=== PATIENT | female | born 1985 | race Caucasian/White ===

== ENCOUNTER 2016-07-02 17:05 | Observation (INO) ==
[2016-07-02 17:34] LABS: Basophils % 0.5 %; Eosinophils # 0.2 K/mcL (0.0-0.6); Eosinophils % 2.3 %; Hematocrit 39.6 % (35.3-44.9); Immature Granulocytes % 0.2 % (0-4); Lymphocytes # 3.3 K/mcL (0.6-4.6); Mean Corpuscular HGB Conc 32.8 g/dL (31.6-35.5); Mean Corpuscular Hemoglobin 29.1 pg (28.0-33.3); Mean Corpuscular Volume 88.8 fL (83.0-100.0); Mean Platelet Volume 9.9 fL (9.4-12.4); Monocytes # 0.4 K/mcL (0.0-1.3); Monocytes % 4.9 %; Neutrophils # 4.4 K/mcL (1.6-8.9); Platelet Count 328 K/mcL (140-400); Red Blood Count 4.46 M/mcL (3.82-4.97); Red Cell Distribution Width 12.7 % (11.5-14.5); Segmented Neutrophils % 53.1 %
[2016-07-02 17:46] LABS: Bilirubin,Urine Negative (Negative); Blood,Urine Small (Negative); Color,Urine Yellow (Yellow); Glucose,Urine (UA) Normal (Normal); Ketones,Urine Negative (Negative); Leukocyte Esterase,Urine Small (Negative); Nitrite,Urine Negative (Negative); Protein,Urine Negative (Neg-Trace); Specific Gravity,Urine 1.016 (1.010-1.025); Urobilinogen,Urine Normal (Normal)
[2016-07-02 17:47] LABS: Bacteria,Urine Many per hpf (None-Few); Hyaline Casts,Urine None Seen per lpf (None-Few); Squamous Epithelial Cell,Urine Many per lpf (None-Few)
[2016-07-02 17:50] LABS: Alanine Aminotransferase 39 Units/L (0-55); Albumin 3.5 g/dL (3.5-5.0); Albumin/Globulin Ratio 0.9 (1.1-2.2); Alkaline Phosphatase 46 Units/L (38-126); Aspartate Amino Transferase 34 Units/L (5-34); BUN/Creatinine Ratio 14 (6-26); Bilirubin,Direct 0.2 mg/dL (0.0-0.5); Bilirubin,Indirect 0.1 mg/dL (0.0-1.2); Bilirubin,Total 0.3 mg/dL (0.2-1.2); Blood Urea Nitrogen 10 mg/dL (7-20); Calcium 8.7 mg/dL (8.6-10.8); Carbon Dioxide 20 mEq/L (19-29); Chloride 107 mEq/L (98-109); Globulin 4.1 g/dL (2.4-3.5); Glucose 92 mg/dL (70-99); Osmolality,Calculated 285 (280-300); Sodium 138 mEq/L (136-145); Total Protein 7.6 g/dL (6.0-8.3); eGFR For African Americans > 60 (> 60); eGFR For Non-African Americans > 60 (> 60)
[2016-07-02 17:51] LABS: Acetaminophen < 1.0 mcg/mL (10-30); Ethanol < 10 mg/dL (0-10); Salicylate < 5.0 mg/dL (15-30)
[2016-07-02 17:51] LABS: Clarity,Urine Hazy (Clear)
[2016-07-02 17:52] LABS: Amphetamine Screen,Urine Negative ng/mL (Cutoff=1000); Barbiturate Screen,Urine Negative ng/mL (Cutoff=200); Benzodiazepines Screen,Urine Negative ng/mL (Cutoff=200); Cannabinoid Screen,Urine Negative ng/mL (Cutoff = 50); Cocaine Screen,Urine Negative ng/mL (Cutoff= 300); Opiate Screen,Urine Negative ng/mL (Cutoff=300); Phencyclidine Screen,Urine Negative ng/mL (Cutoff=25)
[2016-07-02 18:02] LABS: RBC,Urine 0-3 per hpf (0-3)
[2016-07-03 04:53] LABS: Basophils # 0.1 K/mcL (0.0-0.2); Basophils % 0.6 %; Eosinophils # 0.2 K/mcL (0.0-0.6); Eosinophils % 2.7 %; Hematocrit 36.6 % (35.3-44.9); Hemoglobin 11.8 g/dL (11.5-15.4); Immature Granulocytes % 0.2 % (0-4); Lymphocytes # 3.8 K/mcL (0.6-4.6); Lymphocytes % 47.5 %; Mean Corpuscular HGB Conc 32.2 g/dL (31.6-35.5); Mean Corpuscular Hemoglobin 28.9 pg (28.0-33.3); Mean Corpuscular Volume 89.7 fL (83.0-100.0); Mean Platelet Volume 10.2 fL (9.4-12.4); Monocytes # 0.5 K/mcL (0.0-1.3); Monocytes % 5.7 %; Neutrophils # 3.5 K/mcL (1.6-8.9); Platelet Count 329 K/mcL (140-400); Red Blood Count 4.08 M/mcL (3.82-4.97); Red Cell Distribution Width 12.7 % (11.5-14.5); Segmented Neutrophils % 43.3 %
[2016-07-03 05:03] LABS: BUN/Creatinine Ratio 16 (6-26); Blood Urea Nitrogen 12 mg/dL (7-20); Calcium 9.1 mg/dL (8.6-10.8); Carbon Dioxide 19 mEq/L (19-29); Chloride 110 mEq/L (98-109); Glucose 71 mg/dL (70-99); Osmolality,Calculated 288 (280-300); Sodium 140 mEq/L (136-145); eGFR For African Americans > 60 (> 60); eGFR For Non-African Americans > 60 (> 60)
[2016-07-03 12:14] VITALS: BP 117/68
== END 2016-07-03 17:45 ==
LOC: EMEROO 17:05 → 3BNU 17:05
PROVIDERS: ADMIT Internal Medicine; ATTEND Nurse Practitioner Family

== ENCOUNTER 2016-07-03 18:03 | Inpatient (IN) ==
[2016-07-03] MEDS ORDERED: MOM Conc 10 ML UD.LIQ PO PRN (19:07)
[2016-07-03] MEDS ORDERED: *HR* LORazepam 2 MG/ML VIAL IM PRN (19:07)
[2016-07-03] MEDS ORDERED: Mag Hydrox/Al Hydrox/Simeth 30 ML UDC PO PRN (19:07)
[2016-07-03] MEDS ORDERED: *HR* LORazepam 1 MG TABLET PO PRN (19:07)
[2016-07-03] MEDS ORDERED: Haloperidol Lactate 5 MG/ML VIAL IM PRN (19:07)
[2016-07-03] MEDS ORDERED: Ibuprofen 400 MG TABLET PO PRN (19:07)
[2016-07-03] MEDS ORDERED: hydrOXYzine pamoate 25 MG CAPSULE PO PRN (19:07)
[2016-07-03] MEDS ORDERED: traZODone 50 MG TABLET PO PRN (19:07)
[2016-07-03] MEDS ORDERED: tiZANidine 4 MG TABLET PO PRN (19:15)
[2016-07-03] MEDS: Indomethacin 25 MG CAPSULE PO SCH (20:56)
[2016-07-03] MEDS: traZODone 50 MG TABLET PO SCH (20:56)
[2016-07-04] MEDS: *HR* Metformin 500 MG TABLET PO SCH ×2 (08:22→16:35)
[2016-07-04] MEDS: Indomethacin 25 MG CAPSULE PO SCH ×2 (09:06→20:51)
[2016-07-04] MEDS: Multivit/Ca/Min/Fe/FA 1 TAB TABLET PO SCH (09:06)
[2016-07-04] MEDS: (Norgestimate-Ethinyl Estradiol [Sprintec 28 Day Tabl) PO SCH (09:07)
--- NOTE | 2016-07-04 11:27 | Psychiatry History & Physical ---
Date of Encounter: 07/04/16 Time of Encounter: 11:25 History of Present Illness Patient Stated Chief Complaint: Suicide attempt by overdose on Effexor Medicare Admission Attestation: For traditional Medicare patients the provided hospital inpatient services are reasonable and necessary and in the case of services not specified as inpatient -only under 42 CFR 419.22 (n), that they are appropriately provided as inpatient services in accordance 42 CFR 412.3. For Critical [facility] the patient may reasonably be expected to be discharged or transferred to a hospital within 96 hours after admission to the Critical Access Hospital. Admitted From: Intrahospital Transfer History of Present Illness: Ms. Gutierrez is a 31 year old female admitted to the hospital after an overdose on Effexor in a suicide attempt following argument with her boyfriend. This is her first psychiatric hospitalization and after medical clearance she was transferred from the medical floor to behavioral health unit. Please see my consultation report for history information. Past Med Surg Social Fam HX - Past Medical History Medical history: no medical history, diabetes, other - Past Psychiatric History Psychiatric history: Reports: no psych history - Past Surgical History Surgical History: other - Social History Smoking Status: Never smoker Smokeless Tobacco Status: No Alcohol use: occasionally Drug use: none - Family History Father Hx Family Endocrine Disorder: Yes (diabetes) Medications & Allergies Buspirone HCl [Buspar] 15 mg PO BID 07/02/16 [History] Indomethacin 50 mg PO BID 07/02/16 [History] Meloxicam [Mobic] 15 mg PO DAILY 07/02/16 [History] Metformin [Glucophage] 500 mg PO BIDWM 07/02/16 [History] Multivitamin [Multi-Day Vitamins] 1 each PO DAILY 07/02/16 [History] Norgestimate-Ethinyl Estradiol [Sprintec 28 Day Tablet] 1 tab PO DAILY 07/02/16 [History] Tizanidine HCl 2 mg PO Q8H PRN 07/02/16 [History] TraZODone 50 mg PO HS 07/02/16 [History] Venlafaxine XR (24 HR) [Effexor Xr] 150 mg PO DAILY 07/02/16 [History] Allergies No Known Allergies Allergy (Verified 07/02/16 17:09) Review of Systems Psychiatric: Reports: depression, anxiety. Denies: suicidal ideation Mental Status Exam Patient orientation: Yes Person, Yes Time, Yes Place Level of alertness: Alert, Sedated Patient appearance: Appropriate, Well Groomed Behavior: calm, cooperative, guarded Psychomotor activity: Normal Eye contact: Maintains Eye Contact Mood description: Depressed, Anxious Affect description: congruent with mood, full range Speech pattern: Normal rate, Normal rhythm, Normal tone Speech volume: Normal Thought process: Linear, Goal Oriented Thought content: No Suicidal ideation, No Homicidal ideation, No Overt delusions Perceptual disturbances: No Auditory hallucinations, No Visual hallucinations Attention span: Capable of Focused Attention Memory description: Grossly Intact Patient reliability: Reliable Historian Intelligence estimate: Average Judgment: Limited Insight: Partial Results - Vital Signs Vital signs: Temp Pulse Resp BP 97.4 F L 77 16 88/62 07/04/16 08:37 07/04/16 08:37 07/04/16 08:37 07/04/16 08:37 - Labs Labs: Laboratory Last Values POC Glucose 91 (58-89) H 07/04/16 07:39 Assessment and Plan (1) Depressive disorder Current visit: No Status: Acute Plan: Admit inpatient for safety and stabilization, Close observation, Suicide Precautions per unit protocol, Encourage participation in unit milieu, Group Therapy, Monitor sleep, Monitor appetite Risks, benefits, side effects, alternatives discussed w/pt: Yes Patient agreeable to treatment: Yes (2) Alcohol abuse Current visit: No Status: Acute Plan: Admit inpatient for safety and stabilization, Close observation, Suicide Precautions per unit protocol, Encourage participation in unit milieu, Group Therapy, Monitor sleep, Monitor appetite Risks, benefits, side effects, alternatives discussed w/pt: Yes Patient agreeable to treatment: Yes
[2016-07-04] MEDS: traZODone 50 MG TABLET PO SCH (20:51)
[2016-07-05] MEDS: *HR* Metformin 500 MG TABLET PO SCH ×2 (07:08→17:31)
[2016-07-05] MEDS: Indomethacin 25 MG CAPSULE PO SCH ×2 (08:37→20:42)
[2016-07-05] MEDS: Multivit/Ca/Min/Fe/FA 1 TAB TABLET PO SCH (08:37)
[2016-07-05] MEDS: Venlafaxine XR (24 HR) 75 MG CAP.ER.24H PO SCH (08:38)
[2016-07-05] MEDS: (Norgestimate-Ethinyl Estradiol [Sprintec 28 Day Tabl) PO SCH (08:39)
[2016-07-05] MEDS: Sulfamethoxazole/Trimeth DS 1 EACH TABLET PO SCH ×2 (11:47→20:42)
--- NOTE | 2016-07-05 13:42 | Psychiatry Progress Note ---
Date of Encounter: 07/05/16 Time of Encounter: 01:40 Subjective Interval history: Patient seen and interviewed. History and physical examination reviewed. Patient started to notice improvement in her mood. Suicidal ideations has started to subside. Patient is becoming more future oriented and hopeful. Attending groups and participating in activities. Learning coping skills. Encouraged to work on a safety plan. Tolerating medications fairly well. Review of Systems Constitutional: Denies: fever, chills, weakness, weight change Eyes: Denies: eye pain, vision change Ears, Nose, Throat: Denies: ear pain, throat pain, dental pain, hearing loss, congestion Cardiovascular: Denies: chest pain, palpitations, dyspnea on exertion Respiratory: Denies: cough, dyspnea, wheezes Gastrointestinal: Denies: abdominal pain, nausea, vomiting, diarrhea, constipation Musculoskeletal: Denies: joint swelling, joint pain Neurological: Denies: headache, weakness, numbness, memory loss Psychiatric: Reports: depression, anxiety. Denies: suicidal ideation Objective: Exam Patient orientation: Yes Person, Yes Time, Yes Place Level of alertness: Alert, Sedated Patient appearance: Appropriate, Well Groomed Behavior: calm, cooperative, guarded Psychomotor activity: Normal Eye contact: Maintains Eye Contact Mood description: Depressed, Anxious Affect description: congruent with mood, full range Speech pattern: Normal rate, Normal rhythm, Normal tone Speech volume: Normal Thought process: Linear, Goal Oriented Thought content: No Suicidal ideation, No Homicidal ideation, No Overt delusions Perceptual disturbances: No Auditory hallucinations, No Visual hallucinations Judgment: Fair Insight: Partial Results - Vital Signs Vital Signs: Temp Pulse Resp BP 97.8 F 77 18 102/68 07/05/16 08:29 07/05/16 08:29 07/05/16 08:29 07/05/16 08:29 - Labs Labs: Laboratory Results - last 24 hr 07/04/16 07/05/16 19:44 07:07 POC Glucose 130 H 97 H Assessment and Plan (1) Depressive disorder Current visit: No Status: Acute Plan: Continue hospitalization, Close observation, Suicide Precautions per unit protocol, Encourage participation in unit milieu, Group Therapy, Monitor sleep, Monitor appetite Additional Plan: Patient is started to show improvement and is doing better. Patient is encouraged to work on a safety plan. Possible discharge tomorrow. Risks, benefits, side effects, alternatives discussed w/pt: Yes Patient agreeable to treatment: Yes Consult Discharge Plan - Plan Referrals: [facility] [place] [[place]] - 07/17/16 2:30 pm (The above appointment is with Nova Caballero for counseling. When you come to your first appointment, you will have an orientation to the agency and you will meet with a counselor. Please bring the following with you to your first visit to the clinic: 1) proof of household income (two consecutive pay stubs, social security award letter, bank statement, statement letter from [facility], child support statement, IRS 1040 or W2 form, or a statement from the person who financially supports you stating they help provide for your basic needs), 2) proof of residency (drivers license, a piece of mail showing your address, a statement from person you live with verifying you live at their address), 3) your social security number, and 4) your insurance card (if you have commercial insurance you must call to obtain a prior authorization number before you arrive to your first appointment). If you do not bring these items, you will not be seen.) Ya Smith CNP [Partnered Physician] - 07/09/16 9:50 am (The above appointment is with Kang Smith.)
[2016-07-05] MEDS: traZODone 50 MG TABLET PO SCH (20:42)
[2016-07-06] MEDS: *HR* Metformin 500 MG TABLET PO SCH (07:05)
[2016-07-06] MEDS: Venlafaxine XR (24 HR) 75 MG CAP.ER.24H PO SCH (09:16)
[2016-07-06] MEDS: Indomethacin 25 MG CAPSULE PO SCH (09:17)
[2016-07-06] MEDS: Multivit/Ca/Min/Fe/FA 1 TAB TABLET PO SCH (09:17)
[2016-07-06] MEDS: Sulfamethoxazole/Trimeth DS 1 EACH TABLET PO SCH (09:17)
[2016-07-06] MEDS: (Norgestimate-Ethinyl Estradiol [Sprintec 28 Day Tabl) PO SCH (09:19)
[2016-07-06 10:01] VITALS: BP 121/78
--- NOTE | 2016-07-06 11:44 | Discharge Summary ---
Date of Encounter: 07/06/16 Time of Encounter: 10:55 Diagnosis - Discharge Diagnosis (1) Depressive disorder Status: Acute Medications - Discharge Medications Prescriptions: Buspirone HCl [Buspar] 15 mg PO BID #60 tablet HydrOXYzine Pamoate 25 mg PO TID PRN #90 capsule PRN Reason: Anxiety Sulfamethoxazole/Trimeth DS [Bactrim Ds] 1 each PO BID #11 tablet Venlafaxine XR (24 HR) [Effexor XR] 225 mg PO DAILY #90 cap.er.24h Indomethacin 50 mg PO BID 07/02/16 [History] Meloxicam [Mobic] 15 mg PO DAILY 07/02/16 [History] Metformin [Glucophage] 500 mg PO BIDWM 07/02/16 [History] Multivitamin [Multi-Day Vitamins] 1 each PO DAILY 07/02/16 [History] Norgestimate-Ethinyl Estradiol [Sprintec 28 Day Tablet] 1 tab PO DAILY 07/02/16 [History] Tizanidine HCl 2 mg PO Q8H PRN 07/02/16 [History] TraZODone 50 mg PO HS 07/02/16 [History] Buspirone HCl [Buspar] 15 mg PO BID #60 tablet 07/06/16 [Rx] HydrOXYzine Pamoate 25 mg PO TID PRN #90 capsule 07/06/16 [Rx] Sulfamethoxazole/Trimeth DS [Bactrim Ds] 1 each PO BID #11 tablet 07/06/16 [Rx] TraZODone 50 mg PO HS PRN #0 tablet 07/06/16 [Rx] Venlafaxine XR (24 HR) [Effexor XR] 225 mg PO DAILY #90 cap.er.24h 07/06/16 [Rx] Allergies No Known Allergies Allergy (Verified 07/02/16 17:09) Provider Date of admission: 07/03/16 18:03 Primary care physician: PCP NO Discharging clinician: Zehra Bowden Assessment and Plan - Patient/Caregiver Discharge Instructions Activity: resume usual activities as tolerated Diet: regular diet - Follow up Plan Follow up with: Eloina Prescott [Outside] - 07/17/16 2:30 pm (The above appointment is with Nova Caballero for counseling. When you come to your first appointment, you will have an orientation to the agency and you will meet with a counselor. Please bring the following with you to your first visit to the clinic: 1) proof of household income (two consecutive pay stubs, social security award letter, bank statement, statement letter from [facility], child support statement, IRS 1040 or W2 form, or a statement from the person who financially supports you stating they help provide for your basic needs), 2) proof of residency (drivers license, a piece of mail showing your address, a statement from person you live with verifying you live at their address), 3) your social security number, and 4) your insurance card (if you have commercial insurance you must call to obtain a prior authorization number before you arrive to your first appointment). If you do not bring these items, you will not be seen.) Ya Smith CNP [Partnered Physician] - 07/09/16 9:50 am (The above appointment is with Kang Smith.) Overall status at discharge: Stable Disposition: Home, Self-Care Hospital Course Hospital course: Ms. Gutierrez is a 31 year old female who was referred for depression and suicidal ideation. After reviewing the symptom diagnoses and treatment phu and explaining the risks and benefits side effects alternated to treatment and consequences of no treatment and getting an informed consent from the patient for Effexor was increased to 225 mg daily from 150 mg daily for her depression. She was started on Vistaril 25 mg 3 times a day for her anxiety. She was continued on her BuSpar for anxiety. Patient's urine analysis showed a UTI she was started on Bactrim DS. The patient responded well to the therapeutic milieu and started noticing improvement in her motor hopeless helpless feelings started to subside and she became more positive and hopeful. She was able to verbalize a safety plan. She tolerated med changes fairly well did not report any side effects. Overall her discharge condition was stable. - Time Spent with Patient Total time spent providing and/or coordinating discharge services: Less than 30 minutes Quality - Multiple Antipsychotics Patient discharged on 2 or more antipsychotic medications: No Procedures - Procedures Procedures: Medication Management, Crisis Stabilization, Supportive Therapy, Group Therapy, Psychoeducational Therapy Mental Status Exam - Mental Status Exam Patient orientation: Yes Person, Yes Time, Yes Place Level of alertness: Alert, Sedated Patient appearance: Appropriate, Well Groomed Behavior: calm, cooperative Psychomotor activity: Normal Eye contact: Maintains Eye Contact Mood description: Euthymic/stable Affect description: congruent with mood, full range Speech pattern: Normal rate, Normal rhythm, Normal tone Speech Volume: Normal Thought process: Intact, Logical, Linear, Goal Oriented Thought Content: No Suicidal ideation, No Homicidal ideation, No Overt delusions Perceptual Disturbances: No Auditory hallucinations, No Visual hallucinations Judgment: Good Insight: Partial
== END 2016-07-06 13:55 | disposition home or self-care (01) | DRG 812 ==
LOC: SUATTDRO 18:03 → 1ANU 18:03
PROVIDERS: ADMIT Psychiatry & Neurology Psychiatry; ATTEND Psychiatry & Neurology Psychiatry

== ENCOUNTER 2017-03-05 15:08 | Observation (INO) ==
--- NOTE | 2017-03-05 16:06 | Emergency Department Note ---
START Narrative - START START: I examined this patient and my medical decision-making was reviewed with the Resident Physician. I agree with the documented findings, disposition and treatment plan as described except to the extent set forth below. 31 year old female who had a suicicde attempt today with her leftover venlafaxine and took 50, 75mg extended release venlafaxine tablets about 1 hour ago and states that she has lost her job and possibly might lose her home and this caused her to swallow pills. She has done this before about one year ago. Poision control states that she can ingest charcoal if she can toelrate it otherwise will need to be monitored for QT prolongation. EKG does not depict QT proglonation at this and her vital signs are stable. WE will admit ot [facility]isa for effexor OD and medical clearance.
--- NOTE | 2017-03-05 16:07 | Emergency Department Note ---
Disposition Clinical Impression: Suicide attempt by drug ingestion Disposition: Admitted As Inpatient Condition: Fair Time of Disposition: 19:47 Psych HPI - General Chief Complaint: ED Psychiatric Symptoms Stated Complaint: SI, took 50 venlafaxine Time Seen by Provider: 03/05/17 15:32 Source: patient Nursing Notes Reviewed: Yes Vital Signs Reviewed: Yes - History of Present Illness HPI Narrative: Ms. Gutierrez, a 31-year-old female, presents from home after ingesting quantity 50 tablets of venlafaxine extended release, 75 mg tablets. Indigestion at one time at 14:30. She did this one time previously approximate one year ago. Her only symptom at this time is feeling tired. No coingestions. PMH: Depression, previous attempted suicide by ingestion, diabetes type 2 on oral antihyperglycemic. ROS: Positive: Tired Negative: Tremor, confusion, flushing sensation, dry mouth, chest pains, palpitations. - Related Data Home Medications Medication Instructions Recorded Confirmed Meloxicam [Mobic] 15 mg PO DAILY 07/02/16 03/05/17 Norgestimate-Ethinyl Estradiol 1 tab PO DAILY 07/02/16 03/05/17 [Sprintec 28 Day Tablet] ARIPiprazole [Abilify] 2 mg PO HS 03/05/17 03/05/17 Diclofenac Sodium [Voltaren] 1 appl TP QID PRN 03/05/17 03/05/17 Previous Rx's Medication Instructions Recorded Buspirone HCl [Buspar] 15 mg PO BID #60 tablet 07/06/16 Venlafaxine XR (24 HR) [Effexor XR] 225 mg PO DAILY #90 cap.er.24h 07/06/16 Allergies Allergy/AdvReac Type Severity Reaction Status Date / Time No Known Allergies Allergy Verified 07/02/16 17:09 All systems ED: reviewed and negative except as stated. Review of Systems: As Per HPI Past Medical History - Past Medical History Medical history: Reports: no medical history, diabetes, other Surgical history: Reports: other Psychiatric history: Reports: anxiety, depression, prior suicide attempt, previous psychiatric hospitalization - Social History Smoking Status: Never smoker Smokeless Tobacco Status: No Alcohol use: Reports: occasionally Drug use: Reports: none Physical Exam Vital Signs Reviewed General: Patient is alert, oriented, and in no acute distress. HEENT: No facial asymmetry. Head is normocephalic and atraumatic. Oromucosa moist. Trachea midline. Pupils equally round and reactive to light. Extraocular motion intact. No nystagmus. Cardiovascular: Heart regular rate and rhythm without clicks, rubs, gallops, or murmurs. No JVD. PMI nondisplaced. Respiratory: Symmetric chest rise with good respiratory effort. Bilateral breath sounds are clear without wheezing, crackles, or rhonchi. Abdomen: Obese. Bowel sounds present normoactive x-4 quadrants. Abdomen is soft, nondistended, and nontender. No organomegaly noted. Musculoskeletal: DTRs 2/4 and symmetric bilaterally in upper and lower extremities. Neuro: Cranial nerves II through XII without deficit. Sensation light touch intact. GCS 15. Skin: Warm, dry. Psych: Patient's affect is appropriate for situation. - General Limitations: no limitations General appearance: alert, in no apparent distress Course Course Narrative: 15:55 Spoke with poison control. They recommend symptomatic management as well as by mouth charcoal this time. 18:30 Reevaluate patient. She remains alert, oriented. Tired but otherwise asymptomatic. I discussed the patient with the admitting hospitalist, Dr. Moe, who agrees to accept the patient for continued management and evaluation. Vital Signs Temperature 98.7 F 03/05/17 15:31 Pulse Rate 96 03/05/17 15:31 Respiratory Rate 18 03/05/17 15:31 Blood Pressure 101/62 03/05/17 15:31 O2 Sat by Pulse Oximetry 98 03/05/17 15:31 Temperature 97.8 F 03/05/17 19:34 Pulse Rate 94 03/05/17 19:34 Respiratory Rate 14 03/05/17 19:34 Blood Pressure 91/51 03/05/17 19:34 O2 Sat by Pulse Oximetry 97 03/05/17 19:34 Oxygen Delivery Oxygen Delivery Room Air Psych - Lab Data Result diagrams: 03/05/17 16:19 03/05/17 16:19 Lab Results 03/05/17 03/05/17 03/05/17 Range/Units 16:00 16:00 16:00 WBC (4.3-11.1) K/mcL RBC (3.82-4.97) M/mcL Hgb (11.5-15.4) g/dL Hct (35.3-44.9) % MCV (83.0-100.0) fL MCH (28.0-33.3) pg MCHC (31.6-35.5) g/dL RDW (11.5-14.5) % Plt Count (140-400) K/mcL MPV (9.4-12.4) fL Immature Gran % (0-4) % Seg Neutrophils % % Lymphocytes % % Monocytes % % Eosinophils % % Basophils % % Neutrophils # (1.6-8.9) K/mcL Lymphocytes # (0.6-4.6) K/mcL Monocytes # (0.0-1.3) K/mcL Eosinophils # (0.0-0.6) K/mcL Basophils # (0.0-0.2) K/mcL Sodium (136-145) mEq/L Potassium (3.5-4.5) mEq/L Chloride (98-109) mEq/L Carbon Dioxide (19-29) mEq/L BUN (7-20) mg/dL Creatinine (0.57-1.11) mg/dL Est GFR ( Amer) (> 60) Est GFR (Non-Af Amer) (> 60) BUN/Creatinine Ratio (6-26) Glucose (70-99) mg/dL Calculated Osmolality (280-300) Calcium (8.6-10.8) mg/dL Urine Color Yellow (Yellow) Urine Clarity Hazy A (Clear) Urine pH 6.0 (5.0-8.0) pH Units Ur Specific [place] 1.019 (1.010-1.025) Urine Protein Negative (Neg-Trace) mg/dL Urine Glucose (UA) Normal (Normal) mg/dL Urine Ketones Negative (Negative) mg/dL Urine Blood Small H (Negative) Urine Nitrite Negative (Negative) Urine Bilirubin Negative (Negative) Urine Urobilinogen Normal (Normal) mg/dL Ur Leukocyte Esterase Moderate H (Negative) Urine Microscopic RBC 15-30 H (0-3) per hpf Urine Microscopic WBC 50-100 H (0-3) per hpf Ur Squamous Epith Cells Many H (None-Few) per lpf Urine Bacteria None Seen (None-Few) per hpf Hyaline Casts None Seen (None-Few) per lpf Urine Test Negative (Negative) Salicylates (15-30) mg/dL Urine Opiates Screen Negative (Btevne=646) ng/mL Acetaminophen (10-30) mcg/mL Ur Barbiturates Screen Negative (Cavxfh=368) ng/mL Ur Phencyclidine Scrn Negative (Cutoff=25) ng/mL Ur Amphetamines Screen Negative (Qtixuz=8281) ng/mL U Benzodiazepines Scrn Negative (Lyvqob=658) ng/mL Urine Cocaine Screen Negative (Cutoff= 300) ng/mL U Marijuana (THC) Screen Negative (Cutoff = 50) ng/mL Ethyl Alcohol (0-10) mg/dL 03/05/17 03/05/17 Range/Units 16:19 16:19 WBC 9.0 (4.3-11.1) K/mcL RBC 3.83 (3.82-4.97) M/mcL Hgb 11.3 L (11.5-15.4) g/dL Hct 35.0 L (35.3-44.9) % MCV 91.4 (83.0-100.0) fL MCH 29.5 (28.0-33.3) pg MCHC 32.3 (31.6-35.5) g/dL RDW 13.4 (11.5-14.5) % Plt Count 323 (140-400) K/mcL MPV 10.3 (9.4-12.4) fL Immature Gran % 0.3 (0-4) % Seg Neutrophils % 56.4 % Lymphocytes % 33.0 % Monocytes % 4.9 % Eosinophils % 5.0 % Basophils % 0.4 % Neutrophils # 5.1 (1.6-8.9) K/mcL Lymphocytes # 3.0 (0.6-4.6) K/mcL Monocytes # 0.4 (0.0-1.3) K/mcL Eosinophils # 0.5 (0.0-0.6) K/mcL Basophils # 0.0 (0.0-0.2) K/mcL Sodium 140 (136-145) mEq/L Potassium 3.9 (3.5-4.5) mEq/L Chloride 109 (98-109) mEq/L Carbon Dioxide 21 (19-29) mEq/L BUN 15 (7-20) mg/dL Creatinine 0.71 (0.57-1.11) mg/dL Est GFR ( Amer) > 60 (> 60) Est GFR (Non-Af Amer) > 60 (> 60) BUN/Creatinine Ratio 21 (6-26) Glucose 89 (70-99) mg/dL Calculated Osmolality 290 (280-300) Calcium 9.0 (8.6-10.8) mg/dL Urine Color (Yellow) Urine Clarity (Clear) Urine pH (5.0-8.0) pH Units Ur Specific [place] (1.010-1.025) Urine Protein (Neg-Trace) mg/dL Urine Glucose (UA) (Normal) mg/dL Urine Ketones (Negative) mg/dL Urine Blood (Negative) Urine Nitrite (Negative) Urine Bilirubin (Negative) Urine Urobilinogen (Normal) mg/dL Ur Leukocyte Esterase (Negative) Urine Microscopic RBC (0-3) per hpf Urine Microscopic WBC (0-3) per hpf Ur Squamous Epith Cells (None-Few) per lpf Urine Bacteria (None-Few) per hpf Hyaline Casts (None-Few) per lpf Urine Test (Negative) Salicylates < 5.0 L (15-30) mg/dL Urine Opiates Screen (Dvljbn=241) ng/mL Acetaminophen < 1.0 L (10-30) mcg/mL Ur Barbiturates Screen (Rnfejl=565) ng/mL Ur Phencyclidine Scrn (Cutoff=25) ng/mL Ur Amphetamines Screen (Ksydyj=2582) ng/mL U Benzodiazepines Scrn (Rusnqi=549) ng/mL Urine Cocaine Screen (Cutoff= 300) ng/mL U Marijuana (THC) Screen (Cutoff = 50) ng/mL Ethyl Alcohol < 10 (0-10) mg/dL - EKG Data EKG attestation: Yes I reviewed and interpreted this EKG. EKG results narrative: EKG dated March 2017 at 15:54 and troponin as sinus rhythm with a rate of 97. Normal intervals appear 123, QRS 109, QT/QTc 342/397. Normal axis. Nonspecific ST-T changes. No previous EKG for comparison. Psychiatric Medical Clearance - Medical Clearance Checklist Does the patient have a NEW psychiatric condition?: No Any abnormalities indicating possible medical illness?: No Any history of medical issues?: No Medical History: Drug overdose (Acute) Suicidal ideation (Acute) Morbid obesity (Chronic) Diabetes mellitus (Chronic) Abnormal urinalysis (Acute) Depressive disorder (Acute) Alcohol abuse (Acute) Abnormal finding on urinalysis (Inactive) Coccyx contusion (Inactive) Cold sore (Inactive) Pain of right sacroiliac joint (Inactive) Poison dariel (Inactive) No Social History Section defined Any abnormal vital signs prior to transfer?: No Current Vitals: Last Vital Signs Temp 97.8 F 03/05/17 19:34 Pulse 94 03/05/17 19:34 Resp 14 03/05/17 19:34 BP 91/51 03/05/17 19:34 Pulse Ox 97 03/05/17 19:34 Is the patient intoxicated or cognitively impaired?: No Psychiatric Lab Panel: Drug Levels and Toxicity 03/05/17 03/05/17 16:00 16:19 Urine Opiates Screen Negative Acetaminophen < 1.0 L Ur Barbiturates Screen Negative Ur Phencyclidine Scrn Negative Ur Amphetamines Screen Negative U Benzodiazepines Scrn Negative Urine Cocaine Screen Negative U Marijuana (THC) Screen Negative Ethyl Alcohol < 10 Any abnormalities on the physical exam?: No Any abnormal labs?: No Abnormal Labs: Abnormal lab results Hgb 11.3 g/dL (11.5-15.4) L 03/05/17 16:19 Hct 35.0 % (35.3-44.9) L 03/05/17 16:19 Urine Clarity Hazy (Clear) A 03/05/17 16:00 Urine Blood Small (Negative) H 03/05/17 16:00 Ur Leukocyte Esterase Moderate (Negative) H 03/05/17 16:00 Urine Microscopic RBC 15-30 per hpf (0-3) H 03/05/17 16:00 Urine Microscopic WBC 50-100 per hpf (0-3) H 03/05/17 16:00 Ur Squamous Epith Cells Many per lpf (None-Few) H 03/05/17 16:00 Salicylates < 5.0 mg/dL (15-30) L 03/05/17 16:19 Acetaminophen < 1.0 mcg/mL (10-30) L 03/05/17 16:19 Does the patient require durable medical equiptment?: No Is the patient ambulatory?: Yes Is the patient a fall risk?: No Has the patient been medically cleared?: No (24hr obs for venlafaxine ER toxicity) Any acute medical condition require Tx prior to transfer?: Yes (Venlafaxine ingestion) Statement of Medical Clearance: I have evaluated the patient, reviewed diagnostic information, and certify that the patient's medical condition is sufficiently stable that transfer to the psychiatric unit does not pose a significant risk of deterioration.
[2017-03-05 16:18] LABS: Bilirubin,Urine Negative (Negative); Blood,Urine Small (Negative); Color,Urine Yellow (Yellow); Glucose,Urine (UA) Normal (Normal); Ketones,Urine Negative (Negative); Leukocyte Esterase,Urine Moderate (Negative); Nitrite,Urine Negative (Negative); Protein,Urine Negative (Neg-Trace); Specific Gravity,Urine 1.019 (1.010-1.025); Urobilinogen,Urine Normal (Normal)
[2017-03-05 16:19] LABS: Bacteria,Urine None Seen per hpf (None-Few); Hyaline Casts,Urine None Seen per lpf (None-Few); RBC,Urine 15-30 per hpf (0-3); Squamous Epithelial Cell,Urine Many per lpf (None-Few); WBC,Urine 50-100 per hpf (0-3)
[2017-03-05 16:20] LABS: Clarity,Urine Hazy (Clear)
[2017-03-05 16:42] LABS: Basophils % 0.4 %; Eosinophils # 0.5 K/mcL (0.0-0.6); Hemoglobin 11.3 g/dL (11.5-15.4); Immature Granulocytes % 0.3 % (0-4); Mean Corpuscular HGB Conc 32.3 g/dL (31.6-35.5); Mean Corpuscular Hemoglobin 29.5 pg (28.0-33.3); Mean Corpuscular Volume 91.4 fL (83.0-100.0); Mean Platelet Volume 10.3 fL (9.4-12.4); Monocytes # 0.4 K/mcL (0.0-1.3); Monocytes % 4.9 %; Neutrophils # 5.1 K/mcL (1.6-8.9); Platelet Count 323 K/mcL (140-400); Red Blood Count 3.83 M/mcL (3.82-4.97); Red Cell Distribution Width 13.4 % (11.5-14.5); Segmented Neutrophils % 56.4 %
[2017-03-05 16:50] LABS: Amphetamine Screen,Urine Negative ng/mL (Cutoff=1000); Barbiturate Screen,Urine Negative ng/mL (Cutoff=200); Benzodiazepines Screen,Urine Negative ng/mL (Cutoff=200); Cannabinoid Screen,Urine Negative ng/mL (Cutoff = 50); Cocaine Screen,Urine Negative ng/mL (Cutoff= 300); Opiate Screen,Urine Negative ng/mL (Cutoff=300); Phencyclidine Screen,Urine Negative ng/mL (Cutoff=25)
[2017-03-05 16:51] LABS: BUN/Creatinine Ratio 21 (6-26); Blood Urea Nitrogen 15 mg/dL (7-20); Carbon Dioxide 21 mEq/L (19-29); Chloride 109 mEq/L (98-109); Glucose 89 mg/dL (70-99); Osmolality,Calculated 290 (280-300); Potassium 3.9 mEq/L (3.5-4.5); Sodium 140 mEq/L (136-145); eGFR For African Americans > 60 (> 60); eGFR For Non-African Americans > 60 (> 60)
[2017-03-05 16:52] LABS: Acetaminophen < 1.0 mcg/mL (10-30); Ethanol < 10 mg/dL (0-10); Salicylate < 5.0 mg/dL (15-30)
[2017-03-05] MEDS ORDERED: 0.9 % Sodium Chloride 1,000 ML IVC ONE (17:06)
[2017-03-05] MEDS ORDERED: cefTRIAXone 1,000 MG in Water for inj. (sterile) 10 ML IVP ONE (19:00)
[2017-03-05] MEDS ORDERED: Naloxone 0.4 MG/ML INJ IVP PRN (20:02)
--- NOTE | 2017-03-05 20:16 | Internal Med History&Physical ---
Date of Encounter: 03/05/17 Time of Encounter: 19:35 Assessment and Plan (1) Suicide attempt by drug ingestion Current visit: Yes Status: Acute 1. 24 hour sitter and suicide precautions. 2. Patient received Charcoal in ER. 3. Monitor on telemetry and trend EKG's. 4. I personally called Poison Control and discussed with them. 5. Psychiatry consult placed. 6. Hold home meds. 7. test negative. Qualifiers: Encounter type: initial encounter Qualified Code(s): T50.902A - Poisoning by unspecified drugs, medicaments and biological substances, intentional self- harm, initial encounter (2) Diabetes mellitus Current visit: No Status: Chronic 1. Patient states her diabetes is diet controlled. 2. Will monitor glucose for 24 hours, longer if necessary. 3. Will order SSI if necessary. Qualifiers: Diabetes mellitus type: type 2 Diabetes mellitus complication status: without complication Diabetes mellitus terminal carman insulin use: without care home use Qualified Code(s): E11.9 - Type 2 diabetes mellitus without complications (3) DVT prophylaxis Current visit: Yes Status: Acute 1. Heparin SQ. Internal Medicine - H&P: HPI Chief complaint: Effexor overdose Admitted From: Emergency Dept Plans for Post Hospital Care: Home History of present illness: Ms. Gutierrez is a 31 year old female who presents the ER this afternoon after having ingested roughly 40-50 pills of her Effexor XR intentionally. She was seen in the ER and psychiatry was consulted. Furthermore, poison control was contacted, and they advised patient be monitored for any QT prolongation and/or QRS prolongation on her EKG. As such, patient was admitted to hospitalist service with psychiatry consultation. She did receive charcoal in the ER. Upon my assessment of the patient, patient admits to having ingested the above pills. She states she tried to hurt and kill herself. She regrets doing it now. Her [id number]-zos is present and is very supportive of the patient. Patient has a prior history of suicide attempt in the past roughly one year ago. She has extensive psychiatric history, and she admits that she needs mental health assistance. Presently, she is stable and has no complaints at the time. I explained to her that we would keep her on suicide watch and have a 24 hour sitter present. She voiced understanding. I consulted psychiatry for them to see her in the morning. Furthermore, I personally contacted Poison Control Center myself and discussed the case with them. They recommended continued monitoring of her rhythm, EKG, and electrolytes. Per Poison Control, if she remains stable for 12 hours, she can be discharged to the care of psychiatry at the discretion of psychiatry. Past Med Surg Social Fam HX - Past Medical History Attestation: Yes The following information was validated with the patient. Source: patient, old records reviewed, obtained from family Medical history: diabetes (diet controlled -- no meds) Psychiatric history: anxiety, depression, prior suicide attempt, previous psychiatric hospitalization - Past Surgical History Surgical History: other - Social History Smoking Status: Never smoker Smokeless Tobacco Status: No Alcohol use: occasionally Drug use: none Current living situation: Home Activity Level: Independent ambulation Recent Out of Country Travel Within the Last 8 Weeks: No - Family History Father Hx Family Endocrine Disorder: Yes (diabetes) Mother Living Status: Cause of : [facility] Internal Medicine - H&P: Meds Meloxicam [Mobic] 15 mg PO DAILY 07/02/16 [History] Norgestimate-Ethinyl Estradiol [Sprintec 28 Day Tablet] 1 tab PO DAILY 07/02/16 [History] Buspirone HCl [Buspar] 15 mg PO BID #60 tablet 07/06/16 [Rx] Venlafaxine XR (24 HR) [Effexor XR] 225 mg PO DAILY #90 cap.er.24h 07/06/16 [Rx] ARIPiprazole [Abilify] 2 mg PO HS 03/05/17 [History] Diclofenac Sodium [Voltaren] 1 appl TP QID PRN 03/05/17 [History] 3 Allergy/AdvReac Type Severity Reaction Status Date / Time No Known Allergies Allergy Verified 07/02/16 17:09 - Constitutional Constitutional: no chills, no fever(s), no night sweats - EENT Eyes: no blurry vision, no change in vision Ears: no ear pain, no tinnitus Nose, mouth and throat: no sore throat - Cardiovascular Cardiovascular ROS IM: no chest pain, no diaphoresis, no dyspnea, no palpitations - Respiratory Respiratory: no cough, no dyspnea, no hemoptysis - Gastrointestinal Gastrointestinal: no abdominal pain, no constipation, no diarrhea, no hematemesis, no hematochezia, no melena, no nausea, no vomiting - Genitourinary Genitourinary: no dysuria, no flank pain, no hematuria - Musculoskeletal Musculoskeletal ROS IM: no back pain, no muscle cramps, no muscle weakness - Integumentary Integumentary IM: no rash, no jaundice - Neurological Neurological ROS: no dizziness, no focal weakness, no frequent falls, no headache(s) - Psychiatric Psychiatric: anxiety, depression, suicidal ideation, no auditory hallucinations , no visual hallucinations - Endocrine Endocrine IM: no polydipsia, no polyuria - Hematologic/Lymphatic Hematologic/Lymphatic: no easy bruising - Allergic/Immunologic Allergic/Immunologic: no wheezing, no GI upset with certain foods - Constitutional Vitals: Temp Pulse Resp BP Pulse Ox 97.8 F 94 14 91/51 97 03/05/17 19:34 03/05/17 19:34 03/05/17 19:34 03/05/17 19:34 03/05/17 19:34 General appearance: Present: cooperative, A&O X 3, pleasant, no acute distress, answers questions appropriately - Head Head exam: Present: atraumatic, normal inspection - Expanded Head Exam Head exam expanded: Absent: abrasion, contusion, general tenderness - Eye Eye exam: Present: EOMI, normal appearance, PERRL. Absent: scleral icterus Pupils: Present: normal accommodation - ENT ENT exam: Present: mucous membranes dry, normal exam - Neck Neck exam general surgery: Present: full ROM, supple. Absent: tenderness, nuchal rigidity - Expanded Neck Exam Neck exam: Absent: carotid bruit - Respiratory Respiratory exam: Present: CTAB. Absent: chest wall tenderness, rales, respiratory distress, rhonchi, wheezes - Cardiovascular Cardiovascular exam: Present: RRR, +S1, +S2. Absent: diastolic murmur, systolic murmur - GI/Abdominal GI/Abdominal exam: Present: normal bowel sounds, soft. Absent: guarding, hepatomegaly, mass, rebound, splenomegaly, tenderness - Extremities Exam Extremities exam: Present: normal capillary refill, warm. Absent: calf tenderness, joint swelling, pedal edema, tenderness - Back Exam Back exam: Absent: CVA tenderness (L), CVA tenderness (R) - Neurological Exam Neurological exam: Present: alert, CN II-XII intact, oriented X3, no focal deficits - Psychiatric Psychiatric exam: Present: depressed, flat affect, suicidal ideation - Skin Skin exam: Present: dry, warm. Absent: rash Internal Med - H&P Results - Labs CBC & Chem 7: 03/05/17 16:19 03/05/17 16:19 - EKG Data -: EKG Interpreted by Myself EKG shows normal: sinus rhythm - EKG Data Prior EKG available for review: no EKG comments: 03/05/17 20:20 NSR; QRS duration = 109 ms; QTc = 397 ms
[2017-03-05] MEDS: 0.9 % Sodium Chloride w KCl 20 MEQ/1,000 ML MLS IVC SCH (20:25)
[2017-03-05] MEDS: *HR* Heparin 5,000 UNIT/ML VIAL SQ SCH (20:31)
[2017-03-06 03:58] LABS: Basophils # 0.1 K/mcL (0.0-0.2); Basophils % 0.7 %; Eosinophils # 0.6 K/mcL (0.0-0.6); Eosinophils % 6.3 %; Hematocrit 32.4 % (35.3-44.9); Hemoglobin 10.8 g/dL (11.5-15.4); Immature Granulocytes % 0.2 % (0-4); Lymphocytes % 44.7 %; Mean Corpuscular HGB Conc 33.3 g/dL (31.6-35.5); Mean Corpuscular Hemoglobin 29.8 pg (28.0-33.3); Mean Corpuscular Volume 89.5 fL (83.0-100.0); Mean Platelet Volume 10.1 fL (9.4-12.4); Monocytes # 0.6 K/mcL (0.0-1.3); Monocytes % 6.2 %; Neutrophils # 3.8 K/mcL (1.6-8.9); Platelet Count 296 K/mcL (140-400); Red Blood Count 3.62 M/mcL (3.82-4.97); Red Cell Distribution Width 13.5 % (11.5-14.5); Segmented Neutrophils % 41.9 %
[2017-03-06 04:18] LABS: Alanine Aminotransferase 35 Units/L (0-55); Albumin 2.8 g/dL (3.5-5.0); Albumin/Globulin Ratio 0.8 (1.1-2.2); Alkaline Phosphatase 31 Units/L (38-126); Aspartate Amino Transferase 24 Units/L (5-34); BUN/Creatinine Ratio 17 (6-26); Bilirubin,Total 0.3 mg/dL (0.2-1.2); Blood Urea Nitrogen 12 mg/dL (7-20); Calcium 8.4 mg/dL (8.6-10.8); Carbon Dioxide 21 mEq/L (19-29); Chloride 112 mEq/L (98-109); Globulin 3.5 g/dL (2.4-3.5); Glucose 83 mg/dL (70-99); Magnesium 1.6 mg/dL (1.6-2.6); Osmolality,Calculated 291 (280-300); Sodium 141 mEq/L (136-145); Total Protein 6.3 g/dL (6.0-8.3); eGFR For African Americans > 60 (> 60); eGFR For Non-African Americans > 60 (> 60)
[2017-03-06] MEDS: 0.9 % Sodium Chloride w KCl 20 MEQ/1,000 ML MLS IVC SCH (06:10)
[2017-03-06] MEDS: *HR* Heparin 5,000 UNIT/ML VIAL SQ SCH (06:10)
--- NOTE | 2017-03-06 15:27 | Psychiatry Progress Note ---
Date of Encounter: 03/06/17 Time of Encounter: 14:30 Subjective Interval history: Patient is a 31 years old female admitted to the hospital for treatment of drug overdose in a suicide attempt . patient overdosed on Effexor XR. Patient is currently on a medical floor for medical stabilization and she is on pink slip. Psychiatry was consulted regarding evaluation and treatment. Patient has been previously admitted to psychiatry in July 2016 with a similar presentation overdosing on Effexor and she was having depression and alcohol abuse. Patient did not follow-up in outpatient as advised on discharge. Today patient is admitting to overdosing in a suicide attempts she was stressed out by losing her job and she had the intention to kill herself ,she seemed to have no coping skills to handle stressful situations. She agrees that she needs mental health treatment and counseling. Objective: Exam Patient orientation: Yes Person, Yes Time, Yes Place Level of alertness: Alert Patient appearance: Appropriate, Well Groomed, Obese Behavior: calm, cooperative, guarded Psychomotor activity: Slowed Eye contact: Maintains Eye Contact Mood description: Euthymic/stable, Angry, Irritable Affect description: congruent with mood, blunted, flat Speech pattern: Normal rate, Normal rhythm, Normal tone, Limited Speech volume: Normal Thought process: Linear, Goal Oriented Thought content: Yes Suicidal ideation, No Homicidal ideation, No Overt delusions Perceptual disturbances: No Auditory hallucinations, No Visual hallucinations Judgment: Poor Insight: Minimal Results - Vital Signs Vital Signs: Temp Pulse Resp BP Pulse Ox 98.3 F 116 16 100/67 99 03/06/17 13:38 03/06/17 13:38 03/06/17 13:38 03/06/17 13:38 03/06/17 13:38 - Labs Labs: Laboratory Results - last 24 hr 03/05/17 03/06/17 03/06/17 21:17 03:32 03:32 WBC 9.0 RBC 3.62 L Hgb 10.8 L Hct 32.4 L MCV 89.5 MCH 29.8 MCHC 33.3 RDW 13.5 Plt Count 296 MPV 10.1 Immature Gran % 0.2 Seg Neutrophils % 41.9 Lymphocytes % 44.7 Monocytes % 6.2 Eosinophils % 6.3 Basophils % 0.7 Neutrophils # 3.8 Lymphocytes # 4.0 Monocytes # 0.6 Eosinophils # 0.6 Basophils # 0.1 Sodium 141 Potassium 4.0 Chloride 112 H Carbon Dioxide 21 BUN 12 Creatinine 0.70 Est GFR ( Amer) > 60 Est GFR (Non-Af Amer) > 60 BUN/Creatinine Ratio 17 Glucose 83 POC Glucose 132 H Calculated Osmolality 291 Calcium 8.4 L Magnesium 1.6 Total Bilirubin 0.3 AST 24 ALT 35 Alkaline Phosphatase 31 L Serum Total Protein 6.3 Albumin 2.8 L Globulin 3.5 Albumin/Globulin Ratio 0.8 L Assessment and Plan (1) Suicide attempt by drug ingestion Current visit: Yes Status: Acute Plan: Continue hospitalization, Close observation, Suicide Precautions per unit protocol, Encourage participation in unit milieu, Group Therapy, Monitor sleep, Monitor appetite Additional Plan: When medically stable, patient will be transferred to psychiatric units for further treatment on the pink slip. Risks, benefits, side effects, alternatives discussed w/pt: Yes Patient agreeable to treatment: Yes Qualifiers: Encounter type: initial encounter Qualified Code(s): T50.902A - Poisoning by unspecified drugs, medicaments and biological substances, intentional self- harm, initial encounter Consult Discharge Plan - Plan Referrals: Ya Smith, [employer]IN[employer] SHEET CUTTER [Primary Care Provider] -
--- NOTE | 2017-03-06 15:39 | Discharge Summary ---
Date of Encounter: 03/06/17 Time of Encounter: 15:28 - Discharge Medications Home Medications: Meloxicam [Mobic] 15 mg PO DAILY 07/02/16 [History] Norgestimate-Ethinyl Estradiol [Sprintec 28 Day Tablet] 1 tab PO DAILY 07/02/16 [History] Buspirone HCl [Buspar] 15 mg PO BID #60 tablet 07/06/16 [Rx] Venlafaxine XR (24 HR) [Effexor XR] 225 mg PO DAILY #90 cap.er.24h 07/06/16 [Rx] ARIPiprazole [Abilify] 2 mg PO HS 03/05/17 [History] Diclofenac Sodium [Voltaren] 1 appl TP QID PRN 03/05/17 [History] Allergies/Adverse Reactions: 3 Allergy/AdvReac Type Severity Reaction Status Date / Time No Known Allergies Allergy Verified 07/02/16 17:09 Procedures/tests Complete & Pending: Procedures Performed prior 72 hours Category Date Time Status ECG 12 lead ECG [ECG] AM 0600 Y 03/06/17 06:00 Ordered EKG [ECG 12 lead ECG] [ECG] Routine Y 03/06/17 11:04 Ordered Date of admission: 03/05/17 19:08 Primary care physician: Ya Smith CNP Consults: 03/05/17 20:02 Consult to Psychiatry [CONS] Routine Consulting Provider: Psychiatry Carola Reason for Consult: overdose -- initial Time Notified: 20:05 Call Completed: Yes - Patient Status Disposition: Transfer Psychiatric Hosp Condition: Good Overall status at discharge: patient is back to baseline - Discharge Instructions Follow Up With: Ya Smith CNP [Primary Care Provider] - - Diet and Activity Activity: increase activity as tolerated Diet: advance to your usual diet Hospital course: Principal discharge diagnoses: 1. Acute Suicidal ideation with Effexor 2. Major depression 3. Borderline DM2 Ms. Gutierrez is a 31 year old female with known PMH of Anxiety, Depression, who had h/o suicidal attempt in the past now presented to ER last night after overdosing herself with 40 pills effexor to kill herself. Pt stated she has been feeling depressed lately and also have some social issues at home which triggered her to current situation. Pt was admitted in the hospital and placed her on special education science teacher. Checked her blood sugars which were in WNL. Also did frequent EKG to monitor QT prolongation. All her EKGs are normal, no QT prolongation noticed. Medically pt is stable now. Pt was seen by psychiatrist who recommend in patient psych admission, so will transfer to our psych unit today. - Time Spent with Patient Total time spent providing and/or coordinating discharge services: - Constitutional Vitals: Temp Pulse Resp BP Pulse Ox 98.3 F 116 16 100/67 99 03/06/17 13:38 03/06/17 13:38 03/06/17 13:38 03/06/17 13:38 03/06/17 13:38 General appearance: Present: cooperative, A&O X 3, no acute distress, answers questions appropriately - Head Head exam: Present: atraumatic, normal inspection - Neck Neck exam general surgery: Present: supple - Respiratory Respiratory exam: Present: decreased breath sounds. Absent: respiratory distress, rhonchi, tachypnea - Cardiovascular Cardiovascular exam: Present: RRR, +S1, +S2. Absent: systolic murmur - GI/Abdominal GI/Abdominal exam: Present: normal bowel sounds, soft. Absent: rebound, rigid, tenderness - Extremities Exam Extremities exam: Absent: calf tenderness, pedal edema, tenderness - Back Exam Back exam: Absent: CVA tenderness (L), CVA tenderness (R) - Neurological Exam Neurological exam: Present: alert, oriented X3 - Psychiatric Psychiatric exam: Present: depressed. Absent: homicidal ideation, suicidal ideation
--- NOTE | 2017-03-06 17:31 | Electrocardiograph Report ---
[place]! 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
[2017-03-06 18:24] VITALS: BP 105/71
--- NOTE | 2017-03-09 09:20 | Electrocardiograph Report ---
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
== END 2017-03-06 20:15 ==
LOC: EMEROO 15:08 → 3BNU 15:08 → SUATTDRO 19:08 → 3BNU 19:25
PROVIDERS: ADMIT Hospitalist; ATTEND Family Medicine

== ENCOUNTER 2017-03-06 19:56 | Inpatient (IN) ==
[2017-03-06] MEDS ORDERED: MOM Conc 10 ML UD.LIQ PO PRN (22:57)
[2017-03-06] MEDS ORDERED: Ibuprofen 400 MG TABLET PO PRN (22:57)
[2017-03-06] MEDS ORDERED: *HR* LORazepam 1 MG TABLET PO PRN (22:57)
[2017-03-06] MEDS ORDERED: Mag Hydrox/Al Hydrox/Simeth 30 ML UDC PO PRN (22:57)
[2017-03-06] MEDS ORDERED: Haloperidol Lactate 5 MG/ML VIAL IM PRN (22:57)
[2017-03-06] MEDS ORDERED: *HR* LORazepam 2 MG/ML VIAL IM PRN (22:57)
[2017-03-06] MEDS ORDERED: hydrOXYzine pamoate 25 MG CAPSULE PO PRN (22:57)
[2017-03-06] MEDS ORDERED: traZODone 50 MG TABLET PO PRN (22:57)
[2017-03-06] MEDS ORDERED: VOLTAREN GEL TP PRN (23:07)
--- NOTE | 2017-03-07 14:36 | Psychiatry History & Physical ---
Date of Encounter: 03/07/17 Time of Encounter: 02:30 History of Present Illness Patient Stated Chief Complaint: Suicide attempt by overdose Medicare Admission Attestation: For traditional Medicare patients the provided hospital inpatient services are reasonable and necessary and in the case of services not specified as inpatient -only under 42 CFR 419.22 (n), that they are appropriately provided as inpatient services in accordance 42 CFR 412.3. For Critical Access Hospital the patient may reasonably be expected to be discharged or transferred to a hospital within 96 hours after admission to the Critical Access Hospital. Admitted From: Direct Admit Plans for Post Hospital Care: Home History of Present Illness: Ms. Gutierrez is a 31 year old female who was referred for hospitalization after being transferred from [facility] where she was hospitalized after overdosing on Effexor. Patient reported that her intention was to kill herself. After overdosing patient did change her mind and called 911. This is patient's second overdose in the last 10 months. Patient is known to us from prior hospitalization. She is noted to have a history of depression. Patient reported that she been noticing a relapse of depression with low mood and anhedonia hopeless helpless feelings and recurrent suicidal thoughts and ideations. Her ongoing stressors included recent loss of her job, financial stress and extremely poor support system. Patient reported that she notices worsening of her depression and finally decided to end her life by overdosing on Effexor. Since patient attempted suicide and has significant depression and it was decided to transfer her to [facility] a mental health facility after she was medically stabilized for safety concerns. Past Med Surg Social Fam HX - Past Medical History Medical history: diabetes (diet controlled -- no meds) - Past Psychiatric History Psychiatric history: Reports: depression, prior suicide attempt, previous psychiatric hospitalization Past psychiatric history details: This is patient's second suicide attempt. She attempted suicide in July 2016. Has 1 prior psychiatric hospitalization at [facility] in July 2016. Family psychiatric history: No Family History of Suicide: Unknown - Past Surgical History Surgical History: other - Social History Smoking Status: Never smoker Smokeless Tobacco Status: No Alcohol use: occasionally Drug use: none Occupational status: unemployed Current living situation: Home - Independent Activity Level: Independent ambulation Recent Out of Country Travel Within the Last 8 Weeks: No Exposure or Possible Exposure to Illness During Travel: No Additional social history: Patient was born and raised in [place]. She reported good childhood. She graduated high school. She was once in the past. Currently she is and has no children. She resides by herself and is currently unemployed. She reported a poor support system. Denies any legal issues. - Family History Father Hx Family Endocrine Disorder: Yes (diabetes) Mother Living Status: Medications & Allergies Meloxicam [Mobic] 15 mg PO DAILY 07/02/16 [History] Norgestimate-Ethinyl Estradiol [Sprintec 28 Day Tablet] 1 tab PO DAILY 07/02/16 [History] Buspirone HCl [Buspar] 15 mg PO BID #60 tablet 07/06/16 [Rx] Venlafaxine XR (24 HR) [Effexor XR] 225 mg PO DAILY #90 cap.er.24h 07/06/16 [Rx] ARIPiprazole [Abilify] 2 mg PO HS 03/05/17 [History] Diclofenac Sodium [Voltaren] 1 appl TP QID PRN 03/05/17 [History] 3 Allergy/AdvReac Type Severity Reaction Status Date / Time No Known Allergies Allergy Verified 07/02/16 17:09 Review of Systems Psychiatric: Reports: depression, suicidal ideation, hopelessness Mental Status Exam Patient orientation: Yes Person, Yes Time, Yes Place Level of alertness: Alert Patient appearance: Unkempt, Obese Behavior: hostile, withdrawn Psychomotor activity: Increased Eye contact: Maintains Eye Contact Mood description: Depressed Affect description: constricted, dysphoric Speech pattern: Normal rate, Normal rhythm, Normal tone Speech volume: Excessive Variation Thought process: Linear, Goal Oriented Thought content: No Suicidal ideation, No Homicidal ideation, No Overt delusions Perceptual disturbances: No Auditory hallucinations, No Visual hallucinations Attention span: Capable of Focused Attention, Capable of Sustained Attention Memory description: Grossly Intact Patient reliability: Reliable Historian Intelligence estimate: Average Judgment: Limited Insight: Minimal Exam - HEENT Head exam IM: Present: normal inspection Eye exam IM: Present: normal appearance ENT exam IM: Present: normal exam - Neurological Neurological exam IM: Present: CN II-XII intact, normal gait, oriented X3, reflexes normal, no focal deficits, strengths equal and symetr throughout. Absent: motor sensory deficit - Respiratory Respiratory exam IM: Absent: respiratory distress - GI/Abdominal GI/Abdominal exam IM: Present: normal bowel sounds, soft. Absent: tenderness - Extremities Extremities exam IM: Present: normal inspection - Skin Skin exam IM: Present: normal color Results - Vital Signs Vital signs: Temp Pulse Resp BP 97.6 F 88 16 114/76 03/07/17 09:00 03/07/17 09:00 03/07/17 09:00 03/07/17 09:00 Assessment and Plan (1) Recurrent major depression-severe Current visit: Yes Status: Acute Plan: Admit inpatient for safety and stabilization, Close observation, Suicide Precautions per unit protocol, Encourage participation in unit milieu, Group Therapy, Monitor sleep, Monitor appetite Additional Plan: Patient is started on Celexa 20 mg daily and Abilify 5 mg at bedtime for her depression and mood stabilization. Patient is demanding to be discharged. I made it very clear to the patient that this is her second overdose within this year and she is severely depressed and she should stay in the hospital and receive treatment patient got upset and left my office. We will keep the patient in the hospital for a few days until she started to feel better and able to verbalize a good safety plan. Risks, benefits, side effects, alternatives discussed w/pt: Yes Patient agreeable to treatment: Yes Plans for Post Hospital Care: Home Estimated Length of Stay (Days): 4 Qualifiers: Psychotic features: without psychotic features Qualified Code(s): F33.2 - Major depressive disorder, recurrent severe without psychotic features
[2017-03-07] MEDS: ARIPiprazole 5 MG TABLET PO SCH (20:04)
--- NOTE | 2017-03-08 12:44 | Psychiatry Progress Note ---
Date of Encounter: 03/08/17 Time of Encounter: 12:42 Subjective Interval history: Patient seen and interviewed. Patient has started to notice improvement in her mood. Patient was extremely apologetic for her behavior yesterday and reported that now she does realize why she should stay and get help. Patient understand and realize that she was acting extremely impulsively and irrational yesterday. She has been attending groups and working on a safety plan. She is denying any suicidal or homicidal ideations. 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 Patient seems excited about it. Tolerating medications fairly well. Sleep and appetite better. Requesting a discharge tomorrow so she could explore this employment opportunity. Patient's rq-gulnng-[id number]-law can pick her up tomorrow. I told patient that one of the staff members will go over a safety plan and provide some psychoeducation to your [id number]-sd-law so she could be more supportive. Patient is agreeable with this plan.. Review of Systems Psychiatric: Reports: depression, anxiety Objective: Exam Patient orientation: Yes Person, Yes Time, Yes Place Level of alertness: Alert Patient appearance: Appropriate, Well Groomed Behavior: calm, cooperative Psychomotor activity: Normal Eye contact: Maintains Eye Contact Mood description: Euthymic/stable Affect description: congruent with mood, full range Speech pattern: Normal rate, Normal rhythm, Normal tone Speech volume: Normal Thought process: Linear, Goal Oriented Thought content: No Suicidal ideation, No Homicidal ideation, No Overt delusions Perceptual disturbances: No Auditory hallucinations, No Visual hallucinations Judgment: Fair Insight: Partial Results - Vital Signs Vital Signs: Temp Pulse Resp BP 97.8 F 81 18 113/71 03/08/17 09:00 03/08/17 09:00 03/08/17 09:00 03/08/17 09:00 - Labs Labs: Laboratory Results - last 24 hr 03/07/17 03/08/17 21:51 09:39 POC Glucose 123 H 107 H Assessment and Plan (1) Recurrent major depression-severe Current visit: Yes Status: Acute Plan: Continue hospitalization, Close observation, Suicide Precautions per unit protocol, Encourage participation in unit milieu, Group Therapy, Monitor sleep, Monitor appetite Additional Plan: Possible discharge tomorrow after family session with [id number]-law Risks, benefits, side effects, alternatives discussed w/pt: Yes Patient agreeable to treatment: Yes Qualifiers: Psychotic features: without psychotic features Qualified Code(s): F33.2 - Major depressive disorder, recurrent severe without psychotic features
[2017-03-08] MEDS: ARIPiprazole 5 MG TABLET PO SCH (20:50)
[2017-03-09 09:09] VITALS: BP 107/70
[2017-03-09] MEDS ORDERED: VOLTAREN TP PRN (11:00)
--- NOTE | 2017-03-09 12:07 | Discharge Summary ---
Date of Encounter: 03/09/17 Time of Encounter: 12:03 Diagnosis - Discharge Diagnosis (1) Depressive disorder Status: Acute Medications - Discharge Medications Prescriptions: ARIPiprazole [Abilify] 5 mg PO HS #7 tablet Citalopram [CeleXA] 20 mg PO DAILY #7 tablet Norgestimate-Ethinyl Estradiol [Sprintec 28 Day Tablet] 1 tab PO DAILY 07/02/16 [History] ARIPiprazole [Abilify] 5 mg PO HS #7 tablet 03/09/17 [Rx] Buspirone HCl [Buspar] 15 mg PO BID tablet 03/09/17 [Rx] Citalopram [CeleXA] 20 mg PO DAILY #7 tablet 03/09/17 [Rx] Meloxicam [Mobic] 15 mg PO DAILY tablet 03/09/17 [Rx] Patient Taking Own Medication 0 each TP QID PRN each 03/09/17 [Rx] traZODone [TraZODone] 50 mg PO HS PRN tablet 03/09/17 [Rx] 3 Allergy/AdvReac Type Severity Reaction Status Date / Time No Known Allergies Allergy Verified 07/02/16 17:09 Provider Date of admission: 03/06/17 19:56 Discharging clinician: Keshia Lieberman Assessment and Plan - Patient/Caregiver Discharge Instructions Activity: resume usual activities as tolerated Diet: regular diet - Follow up Plan Follow up with: Eloina Lora [facility] [Outside] - 03/31/17 2:00 pm (The above appointment is with Zeina Treycher. When you come to your first appointment, you will be completing paperwork, meeting with a counselor, and developing a treatment plan. You will receive follow- up appointments for on-going services, which could include community support, mental health and substance abuse counseling, groups/partial hospitalization programming, medication assisted treatment, and psychiatric medication management. Please bring the following with you to your first visit to the clinic: 1) proof of household income (two consecutive pay stubs, social security award letter, bank statement, statement letter from [facility] , child support statement, IRS 1040 or W2 form, or a statement from the person who financially supports you stating they help provide for your basic needs), 2 ) proof of residency (drivers license, a piece of mail showing your address, a statement from person you live with verifying you live at their address), 3) your social security card, 4) photo ID, 5) your insurance card (if you have commercial insurance you must call to obtain a prior authorization number before you arrive to your first appointment) and 6) if you do not have insurance but have applied for Medicaid, please bring verification you have applied. The above appointment(s) reflects first availability. You may contact the office regularly to check for cancellations that may allow you to be seen sooner.) Ya Smith CNP [Partnered Physician] - 03/16/17 10:00 am (The above appointment is with Katrin Smith for primary health care and medication management services. Please arrive 10 minutes early to complete the check-in process. Please also bring your insurance card (or [facility]), photo ID , and all medications in their original bottles to this appointment. If you are unable to keep this appointment, 24 hour business notice of cancellation is expected. The above appointment(s) reflects first availability. You may contact the office regularly to check for cancellations that may allow you to be seen sooner.) Functional capacity at discharge: independent ambulation Overall status at discharge: Stable Disposition: Home, Self-Care Hospital Course Hospital course: Ms. Gutierrez is a 31 year old female who was admitted following an overdose of Effexor. During the course of her inpatient stay her Effexor was discontinued and she was started on Celexa. Client responded well to this medication and was denying SI the day of discharge. She indicated she was hopeful for her future. She had received good news that her former boss wanted to hire her back. One of her major stressors was the recent loss of employment so the prospect of returning to work for someone she likes went a long way as far as helping her mood. Client never followed up with counseling following her last admission. Client indicated this was due to transportation issues. Client reported she no longer has transportation issues and stated she intends to follow through with therapy this time. Client was able to contract for safety and has a plan for where she will go/who she will call if SI returns following discharge. She has an outpatient psychiatry appointment within one week of discharge. - Time Spent with Patient Total time spent providing and/or coordinating discharge services: Quality - Multiple Antipsychotics Patient discharged on 2 or more antipsychotic medications: No Procedures - Procedures Procedures: Medication Management, Crisis Stabilization, Supportive Therapy, Group Therapy Mental Status Exam - Mental Status Exam Patient orientation: Yes Person, Yes Time, Yes Place Level of alertness: Alert Patient appearance: Appropriate, Well Groomed Behavior: calm, cooperative Psychomotor activity: Normal Eye contact: Maintains Eye Contact Mood description: Euthymic/stable Affect description: congruent with mood, full range Speech pattern: Normal rate, Normal rhythm, Normal tone Speech Volume: Normal Thought process: Linear, Goal Oriented Thought Content: No Suicidal ideation, No Homicidal ideation, No Overt delusions Perceptual Disturbances: No Auditory hallucinations, No Visual hallucinations Judgment: Fair Insight: Partial
== END 2017-03-09 14:08 | disposition home or self-care (01) | DRG 751 ==
LOC: 1ANU 19:56 → SUATTDRO 19:56
PROVIDERS: ADMIT Psychiatry & Neurology Psychiatry; ATTEND Psychiatry & Neurology Psychiatry

== ENCOUNTER 2018-05-30 12:01 | Observation (INO) ==
--- NOTE | 2018-05-30 12:27 | Emergency Department Note ---
Disposition Clinical Impression: Suicide attempt Suicide attempt by drug ingestion Qualifiers: Encounter type: initial encounter Qualified Code(s): T50.902A - Poisoning by unspecified drugs, medicaments and biological substances, intentional self-harm, initial encounter Disposition: Admitted As Inpatient Condition: Fair Referrals: NONE,PCP [Primary Care Provider] - Forms: ED Satisfaction Letter Time of Disposition: 13:24 General Adult HPI - General Chief complaint: ED Psychiatric Symptoms Stated complaint: SI/OD BuSpar Time Seen by Provider: 05/30/18 12:06 Source: patient, family Mode of arrival: ambulatory Limitations: no limitations Nursing Notes Reviewed: Yes Vital Signs Reviewed: Yes - History of Present Illness HPI Narrative: 33-year-old female with significant past medical history of depression and previous suicide attempts from overdoses presenting to the emergency department after an intentional overdose. Patient states approximately 1 hour prior to arrival she took 15 15mg BuSpar pills along with approximately 15 venlafaxine 75 mg extended release pills. Patient states intent was self-harm. Patient states she has done this previously. Denies any other self-harm. Denies any homicidal ideation. Denies any visual or auditory hallucinations. Patient states she has had multiple previous admissions to psychiatric services. Denies any other medical conditions or complaints. Pain Scale: 0 - Related Data Home Medications Medication Instructions Recorded Confirmed Buspirone HCl [Buspar] 15 mg PO BID 02/14/18 02/14/18 predniSONE [PredniSONE] 10 mg PO DAILY 02/14/18 02/14/18 Previous Rx's Medication Instructions Recorded Cephalexin [Keflex] 500 mg PO QID #28 capsule 02/14/18 HYDROcodone/Acet 5/325 mg [[place] 1 tab PO Q4H PRN 3 Days #12 tab 02/14/18 5-325 mg] Allergies Allergy/AdvReac Type Severity Reaction Status Date / Time No Known Allergies Allergy Verified 02/14/18 22:00 All systems ED: reviewed and negative except as stated. Constitutional: Denies: fever Eyes: Reports: as per HPI ENT ED: Reports: as per HPI Cardiovascular: Denies: chest pain Respiratory: Denies: dyspnea Gastrointestinal: Denies: abdominal pain Genitourinary: Reports: as per HPI Musculoskeletal: Reports: as per HPI Integumentary: Reports: as per HPI Neurological: Reports: as per HPI Psychiatric: Reports: depression, suicidal thoughts. Denies: homicidal thoughts, auditory hallucinations, visual hallucinations Endocrine: Reports: as per HPI Hematological/Lymphatic: Reports: as per HPI Allergic/Immunologic: Reports: as per HPI Past Medical History - Past Medical History Attestation: Yes The following information was validated with the patient. Medical history: Reports: diabetes, other Surgical history: Reports: other Psychiatric history: Reports: anxiety, depression, prior suicide attempt, previous psychiatric hospitalization PARTY PLAN SALES HOST/HOSTESS history: Reports: no PARTY PLAN SALES HOST/HOSTESS history - Social History Smoking Status: Never smoker Smokeless Tobacco Status: No Alcohol use: Reports: none Drug use: Reports: none Physical Exam - General Limitations: no limitations General appearance: alert, in no apparent distress - Head Head exam: atraumatic, normocephalic, normal inspection - Eye Eye exam: Present: EOMI - ENT ENT exam: mucous membranes moist - Neck Neck exam: Present: full ROM - Chest Chest inspection: Present: symmetric chest wall rise - Respiratory Respiratory exam: Present: normal lung sounds bilaterally. Absent: respiratory distress, wheezes - Cardiovascular Cardiovascular exam: Present: regular rate, normal rhythm, normal heart sounds - Abdominal Exam Abdominal exam: Present: soft, Non-Tender. Absent: distention, guarding, reboun d - Extremities Exam Extremities exam: Present: full ROM, other (Superficial abrasions noted to the bilateral lower extremities) - Neurological Exam Neurological exam: Present: alert, oriented X3 - Psychiatric Psychiatric exam: Present: depressed, suicidal ideation. Absent: homicidal ideation - Skin Skin exam: Present: warm Course Course Narrative: 33-year-old female presenting with intentional drug overdose. In the room she is alert and oriented 3 and hemodynamically stable. A symptomatically at this time. I spoke with the pharmacy certified medical coding specialist who obtain patient's previous prescriptions. We are able to see the patient took BuSpar and venlafaxine. She states she took approximately 15 of each pill. I contacted poison control and opened and new case on the patient. They did not recommend activated charcoal at this time. They did recommend basic screening labs along with EKG. Their recommendation for medical clearance is the minimum of 12 hour observation. We will obtain labs, urine analysis, urine drug screen and plan to admit the patient to medicine pending psychiatric evaluation when she is medically clear. We will pink slipped the patient due to her suicide attempt and plan to admit once labs are back. - Reevaluation(s) Reevaluation #1: Patient's laboratory analysis benign. Patient remains asymptomatic in the emergency department. Due to patient's prolonged medical observation. We will plan to admit to medicine at this time for further evaluation until psychiatric services can be consult it. Patient remains alert and oriented 3 and hemodynamically stable. I spoke with the hospitalist online activist Dr. Odom who agrees to accept the patient at this time. Vital Signs Temperature 98.0 F 05/30/18 12:11 Pulse Rate 93 05/30/18 12:11 Respiratory Rate 16 05/30/18 12:11 Blood Pressure 122/84 05/30/18 12:11 O2 Sat by Pulse Oximetry 98 05/30/18 12:11 Temperature 98.0 F 05/30/18 12:11 Pulse Rate 93 05/30/18 12:11 Respiratory Rate 16 05/30/18 12:11 Blood Pressure 122/84 05/30/18 12:11 O2 Sat by Pulse Oximetry 98 05/30/18 12:11 Oxygen Delivery Oxygen Delivery Room Air Medical Decision Making - Lab Data Result diagrams: 05/30/18 12:17 05/30/18 12:17 Lab Results 05/30/18 05/30/18 05/30/18 Range/Units 12:17 12:17 13:11 WBC 8.1 (4.3-11.1) K/mcL RBC 4.81 (3.82-4.97) M/mcL Hgb 14.2 (11.5-15.4) g/dL Hct 43.5 (35.3-44.9) % MCV 90.4 (83.0-100.0) fL MCH 29.5 (28.0-33.3) pg MCHC 32.6 (31.6-35.5) g/dL RDW 13.2 (11.5-14.5) % Plt Count 308 (140-400) K/mcL MPV 10.4 (9.4-12.4) fL Immature Gran % 0.2 (0-4) % Seg Neutrophils % 44.8 % Lymphocytes % 45.3 % Monocytes % 6.1 % Eosinophils % 3.0 % Basophils % 0.6 % Neutrophils # 3.6 (1.6-8.9) K/mcL Lymphocytes # 3.7 (0.6-4.6) K/mcL Monocytes # 0.5 (0.0-1.3) K/mcL Eosinophils # 0.2 (0.0-0.6) K/mcL Basophils # 0.1 (0.0-0.2) K/mcL Sodium 141 (136-145) mEq/L Potassium 3.5 (3.5-5.1) mEq/L Chloride 108 H (98-107) mEq/L Carbon Dioxide 24 (23-29) mEq/L BUN 9 (6-20) mg/dL Creatinine 0.87 (0.60-1.20) mg/dL Est GFR ( Amer) > 60 (> 60) Est GFR (Non-Af Amer) > 60 (> 60) BUN/Creatinine Ratio 10 (6-26) Glucose 120 H (70-105) mg/dL Calculated Osmolality 292 (280-300) Calcium 10.1 (8.6-10.3) mg/dL Salicylates < 2.5 L (15.0-30.0) mg/dL Acetaminophen < 10 L (10-20) mcg/mL Ur Drug Screen Interp See Below Ethyl Alcohol < 10 (Less than 10) mg/dL - EKG Data EKG #1 EKG attestation: Yes I reviewed and interpreted this EKG. EKG results narrative: Sinus rhythm. 85 bpm. [place] interval 139, QRS 105, QTC 418. No sign of acute ST segment elevation or ischemia. Compared to previous EKG completed on 02/10/2018 no significant changes noted
[2018-05-30 12:30] LABS: Basophils # 0.1 K/mcL (0.0-0.2); Basophils % 0.6 %; Eosinophils # 0.2 K/mcL (0.0-0.6); Hematocrit 43.5 % (35.3-44.9); Hemoglobin 14.2 g/dL (11.5-15.4); Immature Granulocytes % 0.2 % (0-4); Lymphocytes # 3.7 K/mcL (0.6-4.6); Lymphocytes % 45.3 %; Mean Corpuscular HGB Conc 32.6 g/dL (31.6-35.5); Mean Corpuscular Hemoglobin 29.5 pg (28.0-33.3); Mean Corpuscular Volume 90.4 fL (83.0-100.0); Mean Platelet Volume 10.4 fL (9.4-12.4); Monocytes # 0.5 K/mcL (0.0-1.3); Monocytes % 6.1 %; Neutrophils # 3.6 K/mcL (1.6-8.9); Platelet Count 308 K/mcL (140-400); Red Blood Count 4.81 M/mcL (3.82-4.97); Red Cell Distribution Width 13.2 % (11.5-14.5); Segmented Neutrophils % 44.8 %
--- NOTE | 2018-05-30 12:43 | Emergency Department Note ---
Disposition Clinical Impression: Suicidal ideation Disposition: Still a Patient Referrals: NONE,PCP [Primary Care Provider] - Forms: ED Satisfaction Letter General Adult HPI - General Chief complaint: ED Psychiatric Symptoms Stated complaint: SI/OD BuSpar Time Seen by Provider: 05/30/18 12:06 Source: patient, family Mode of arrival: ambulatory Limitations: no limitations Nursing Notes Reviewed: Yes Vital Signs Reviewed: Yes - History of Present Illness HPI Narrative: Attestation note: Patient was seen with the emergency medicine resident/nurse practitioner/physician central supply assistant/transitional resident/medical student: Dr. DEANA CERRATO I have personally performed a face to face evaluation on this patient. I have reviewed and agree with history and physical examination patient management and disposition. Briefly the salient points of the case are as follows: A 33-year-old female woke an overdose of her and her Effexor 15 tablets each less than hour prior to arrival with the intent to harm herself. Actively wheezing and statements of suicidal ideations. She stents in the past. She is asymptomatic. Afebrile with stable vital signs. Physical examination is benign. We did consult [facility] who said observation for 12 hours for medical cl earance and then the patient can have mental health evaluation afterwards. Screening labs are being obtained including EKG. Admission disposition pending Pain Scale: 0 - Related Data Home Medications Medication Instructions Recorded Confirmed Buspirone HCl [Buspar] 15 mg PO BID 02/14/18 02/14/18 predniSONE [PredniSONE] 10 mg PO DAILY 02/14/18 02/14/18 Previous Rx's Medication Instructions Recorded Cephalexin [Keflex] 500 mg PO QID #28 capsule 02/14/18 HYDROcodone/Acet 5/325 mg [[place] 1 tab PO Q4H PRN 3 Days #12 tab 02/14/18 5-325 mg] Allergies Allergy/AdvReac Type Severity Reaction Status Date / Time No Known Allergies Allergy Verified 02/14/18 22:00 Past Medical History - Past Medical History Medical history: Reports: diabetes, other Surgical history: Reports: other Psychiatric history: Reports: anxiety, depression, prior suicide attempt, previous psychiatric hospitalization OFFSET PRESS ASSISTANT history: Reports: no OFFSET PRESS ASSISTANT history - Social History Smoking Status: Never smoker Smokeless Tobacco Status: No Alcohol use: Reports: none Drug use: Reports: none Physical Exam - General Limitations: no limitations General appearance: alert, in no apparent distress Course Vital Signs Temperature 98.0 F 05/30/18 12:11 Pulse Rate 93 05/30/18 12:11 Respiratory Rate 16 05/30/18 12:11 Blood Pressure 122/84 05/30/18 12:11 O2 Sat by Pulse Oximetry 98 05/30/18 12:11 Temperature 98.0 F 05/30/18 12:11 Pulse Rate 93 05/30/18 12:11 Respiratory Rate 16 05/30/18 12:11 Blood Pressure 122/84 05/30/18 12:11 O2 Sat by Pulse Oximetry 98 05/30/18 12:11 Oxygen Delivery Oxygen Delivery Room Air Medical Decision Making - Lab Data Result diagrams: 05/30/18 12:17 Lab Results 05/30/18 Range/Units 12:17 WBC 8.1 (4.3-11.1) K/mcL RBC 4.81 (3.82-4.97) M/mcL Hgb 14.2 (11.5-15.4) g/dL Hct 43.5 (35.3-44.9) % MCV 90.4 (83.0-100.0) fL MCH 29.5 (28.0-33.3) pg MCHC 32.6 (31.6-35.5) g/dL RDW 13.2 (11.5-14.5) % Plt Count 308 (140-400) K/mcL MPV 10.4 (9.4-12.4) fL Immature Gran % 0.2 (0-4) % Seg Neutrophils % 44.8 % Lymphocytes % 45.3 % Monocytes % 6.1 % Eosinophils % 3.0 % Basophils % 0.6 % Neutrophils # 3.6 (1.6-8.9) K/mcL Lymphocytes # 3.7 (0.6-4.6) K/mcL Monocytes # 0.5 (0.0-1.3) K/mcL Eosinophils # 0.2 (0.0-0.6) K/mcL Basophils # 0.1 (0.0-0.2) K/mcL
[2018-05-30 12:50] LABS: Acetaminophen < 10 mcg/mL (10-20); BUN/Creatinine Ratio 10 (6-26); Blood Urea Nitrogen 9 mg/dL (6-20); Calcium 10.1 mg/dL (8.6-10.3); Carbon Dioxide 24 mEq/L (23-29); Chloride 108 mEq/L (98-107); Ethanol < 10 mg/dL (Less than 10); Glucose 120 mg/dL (70-105); Osmolality,Calculated 292 (280-300); Potassium 3.5 mEq/L (3.5-5.1); Salicylate < 2.5 mg/dL (15.0-30.0); Sodium 141 mEq/L (136-145); eGFR For Non-African Americans > 60 (> 60)
[2018-05-30 13:22] LABS: Bilirubin,Urine Negative (Negative); Blood,Urine Negative (Negative); Clarity,Urine Cloudy (Clear); Color,Urine Yellow (Yellow); Glucose,Urine (UA) Normal (Normal); Ketones,Urine Negative (Negative); Leukocyte Esterase,Urine Small (Negative); Nitrite,Urine Negative (Negative); PH,Urine 6.5 pH Units (5.0-8.0); Protein,Urine Negative (Neg-Trace); Specific Gravity,Urine 1.022 (1.010-1.025); Urobilinogen,Urine Normal (Normal)
[2018-05-30 13:24] LABS: Bacteria,Urine Moderate per hpf (None-Few); Hyaline Casts,Urine None Seen per lpf (None-Few); Squamous Epithelial Cell,Urine Many per lpf (None-Few)
[2018-05-30 13:32] LABS: Amphetamine Screen,Urine Negative ng/mL (Cutoff=1000); Barbiturate Screen,Urine Negative ng/mL (Cutoff=200); Benzodiazepines Screen,Urine Negative ng/mL (Cutoff=200); Cannabinoid Screen,Urine Negative ng/mL (Cutoff = 50); Cocaine Screen,Urine Negative ng/mL (Cutoff= 300); Opiate Screen,Urine Negative ng/mL (Cutoff=300); Phencyclidine Screen,Urine Negative ng/mL (Cutoff=25)
[2018-05-30 13:34] LABS: RBC,Urine 0-3 per hpf (0-3)
[2018-05-30] MEDS ORDERED: Naloxone 0.4 MG/ML INJ IVP PRN (15:03)
--- NOTE | 2018-05-30 16:06 | Internal Med History&Physical ---
Date of Encounter: 05/30/18 Time of Encounter: 15:00 Internal Medicine - H&P: HPI Chief complaint: INTENTIONAL DRUG OVERDOSE Admitted From: Home Plans for Post Hospital Care: Transfer Psych Facility History of present illness: The patient is a 33-year-old woman. She has had long-standing history of severe depression (with multiple suicidal attempts). She was brought to the emergency room about 12 0 1 PM. It was Thursday morning when she confessed to her stepmother about taking multiple pills of venlafaxine and multiple pills of buspirone with intention to kill herself. I talked to her and her stepmother shortly after admitting her to the hospital floor. Evidently, she has been feeling very depressed recently. She felt hopeless and helpless; having depressed mood and periods of crying. It was yesterday evening when she got the very upset with her boyfriend. She had difficulty sleeping last night; overdosed her medications today morning. The patient has had long-standing history of recurrent psychiatric admissions/outpatient psychiatric care. PAST MEDICAL HX: The patient is a borderline diabetic. Otherwise, she does not have any other medical problems. PAST FAMILY HX: Her brother was diagnosed with diabetes mellitus. She does not remember any other problems running in her close family. PAST SOCIAL HX: The patient has no history of alcohol or tobacco use. She denies illicit drug use. Her urine drug screening is negative for illicit substances tested. REVIEW OF SYSTEMS: All 14 organ systems were reviewed by me with the patient. Positive and pertinent negative findings are listed above. The rest of organ systems is negative. PHYSICAL EXAM: Skin: Free of rash and discoloration. Eyes: Sclera is white. There is no discharge from eyes. ENMT: Oral/pharyngeal mucosa is normal in appearance. There is no discharge from nose or ears. Respiratory: Normal breath sounds with no crackles and wheezes bilaterally. CV: Heart is regular with no gallop or murmur. GI: Abdomen is flat and soft with no palpable mass or visceromegaly. : There is no tenderness in patient's flanks bilaterally. Neuro exam: He has good strength in upper and lower extremities. He has normal eye movements. Psychiatric: Her affect is relatively flat. However, she smiled to me on a couple occasions during my interview with her. Her thought process is appropriate to the situation. She understands osteoporosis. She agrees with that. ADDITIONAL DATA: Urine drug screen his negative for all substances tested. Salicylates, acetaminophen and ethyl alcohol levels are normal. CBC is normal. BMP shows sodium of 141 and potassium 3.5. Bicarb is 24. Creatinine is 0.87. UA is normal. A/P: Intentional drug overdose. Severe depression with suicidal ideation. ED contacted with psychiatry. They will take her for psychiatric treatment after 12 hour observation in the regular medical floor. I will provide her with supportive treatments. She has one-to-one sitter. I will check her CMP tomorrow morning. Borderline diabetes. I am going to check her A1c. Morbid obesity. Her BMI is 42.0. To be addressed in outpatient settings. Past Med Surg Social Fam HX - Past Medical History Medical history: diabetes, other Additional medical history: borderline diabetic Psychiatric history: anxiety, depression, prior suicide attempt, previous psychiatric hospitalization - Past Surgical History Surgical History: other Additional surgical history: Teeth pulled - Social History Smoking Status: Never smoker Smokeless Tobacco Status: No Alcohol use: none Drug use: none - Family History Father Hx Family Endocrine Disorder: Yes (diabetes) Mother Living Status: Brother Hx Family Endocrine Disorder: Yes (DM) Internal Medicine - H&P: Meds Buspirone HCl [Buspar] 15 mg PO BID 02/14/18 [History] ARIPiprazole [Abilify] 2 mg PO DAILY 05/30/18 [History] Venlafaxine HCl [Venlafaxine HCl ER] 225 mg PO DAILY 05/30/18 [History] Allergy/AdvReac Type Severity Reaction Status Date / Time No Known Allergies Allergy Verified 02/14/18 22:00 - Constitutional Vitals: Temp Pulse Resp BP Pulse Ox 98.0 F 93 16 127/89 98 05/30/18 12:11 05/30/18 12:11 05/30/18 13:39 05/30/18 13:39 05/30/18 12:11 General appearance: Present: A&O X 3, no acute distress, answers questions appropriately Exam: xx Internal Med - H&P Results - Labs CBC & Chem 7: 05/30/18 12:17 05/30/18 12:17 Labs: Short CBC 05/30/18 Range/Units 12:17 WBC 8.1 (4.3-11.1) K/mcL Hgb 14.2 (11.5-15.4) g/dL Hct 43.5 (35.3-44.9) % Plt Count 308 (140-400) K/mcL Neutrophils # 3.6 (1.6-8.9) K/mcL BMP 05/30/18 12:17 Sodium 141 Potassium 3.5 Chloride 108 H Carbon Dioxide 24 BUN 9 Creatinine 0.87 Glucose 120 H Calcium 10.1 Urine 05/30/18 Range/Units 13:11 Urine Color Yellow (Yellow) Urine Clarity Cloudy A (Clear) Urine pH 6.5 (5.0-8.0) pH Units Ur Specific [place] 1.022 (1.010-1.025) Urine Protein Negative (Neg-Trace) mg/dL Urine Glucose (UA) Normal (Normal) mg/dL - Assessment and plan (1) Intentional drug overdose Current Visit: Yes Status: Acute Qualifiers: Encounter type: initial encounter Qualified Code(s): T50.902A - Poisoning by unspecified drugs, medicaments and biological substances, intentional self- harm, initial encounter (2) Depressive disorder Current Visit: Yes Status: Chronic (3) Suicidal ideation Current Visit: Yes Status: Acute (4) Borderline diabetes mellitus Current Visit: Yes Status: Chronic (5) Morbid obesity with BMI of 40.0-44.9, adult Current Visit: Yes Status: Chronic - Time Spent With Patient Total time spent is greater than 50% in coordination of care (as documented) at patient's floor/unit and/or counseling patient: 25 - 35 minutes - VTE Reasons for not Prescribing Prophylaxis: Treatment not Indicated - Low risk for VTE Deep Vein Thrombosis/Pulmonary Embolism Present on Admission: No
[2018-05-31 05:36] LABS: Alanine Aminotransferase 43 Units/L (7-52); Albumin 3.9 g/dL (3.5-5.7); Albumin/Globulin Ratio 1.4 (1.1-2.2); Alkaline Phosphatase 37 Units/L (34-104); Aspartate Amino Transferase 24 Units/L (13-39); BUN/Creatinine Ratio 13 (6-26); Bilirubin,Total 0.4 mg/dL (0.3-1.0); Blood Urea Nitrogen 10 mg/dL (6-20); Calcium 9.5 mg/dL (8.6-10.3); Carbon Dioxide 23 mEq/L (23-29); Chloride 109 mEq/L (98-107); Globulin 2.8 g/dL (2.4-3.5); Glucose 116 mg/dL (70-105); Osmolality,Calculated 290 (280-300); Potassium 3.8 mEq/L (3.5-5.1); Sodium 140 mEq/L (136-145); Total Protein 6.7 g/dL (6.4-8.9); eGFR For Non-African Americans > 60 (> 60)
[2018-05-31] MEDS ORDERED: Acetaminophen 325 MG TABLET PO ONE (06:58)
[2018-05-31 08:59] LABS: Estimated Average Glucose 126 mg/dl
--- NOTE | 2018-05-31 11:19 | Consult Note ---
Date of Encounter: 05/31/18 Time of Encounter: 11:15 Assessment & Recommendation (1) Recurrent major depression-severe Current visit: No Status: Acute Assessment & Recommendation: Recommend inpatient psychiatric treatment when medically clear. Will evaluate meds once transferred. Would not recommend starting anything new at this time. Qualifiers: Psychotic features: without psychotic features Qualified Code(s): F33.2 - Major depressive disorder, recurrent severe without psychotic features History of Present Illness Requesting Physician: Chidi Valencia Reason for consult: overdose History of present illness: Ms. Gutierrez is a 33 year old female who presented to the hospital following an overdose of her home meds. Client reports she had "a bad day" yesterday and made a "bad decision." Claims her intention was to but that today her SI has improved. History of prior mental health admissions. States this is her third overdose attempt. Linked with outpatient providers through [facility] but admits to noncompliance with appointments due to transportation issues. Denies having any physical health or AOD issues. No evidence of a thought disorder. Looks depressed and admits to depression and anxiety. Some personality issues likely at play as well. Agreeable to inpatient admission. CC: Chidi Valencia Past Med Surg Social Fam HX - Past Medical History Medical history: diabetes, other - Past Psychiatric History Psychiatric history: Reports: anxiety, depression, prior suicide attempt, previous psychiatric hospitalization Family psychiatric history: Unknown Family History of Suicide: Unknown - Past Surgical History Surgical History: other - Social History Smoking Status: Never smoker Smokeless Tobacco Status: No Alcohol use: none Drug use: none - Family History Father Hx Family Endocrine Disorder: Yes (diabetes) Mother Living Status: Brother Hx Family Endocrine Disorder: Yes (DM) Medications & Allergies Buspirone HCl [Buspar] 15 mg PO BID 02/14/18 [History] ARIPiprazole [Abilify] 2 mg PO DAILY 05/30/18 [History] Venlafaxine HCl [Venlafaxine HCl ER] 225 mg PO DAILY 05/30/18 [History] Allergy/AdvReac Type Severity Reaction Status Date / Time No Known Allergies Allergy Verified 02/14/18 22:00 Review of Systems Constitutional: Denies: fever, chills, weakness, weight change Eyes: Denies: eye pain, vision change Ears, Nose, Throat: Denies: ear pain, throat pain, dental pain, hearing loss, congestion Cardiovascular: Denies: chest pain, palpitations, dyspnea on exertion Respiratory: Denies: cough, dyspnea, wheezes Gastrointestinal: Denies: abdominal pain, nausea, vomiting, diarrhea, constipation Genitourinary female: Denies: urgency, dysuria, frequency, abnormal menses, dyspareunia Musculoskeletal: Denies: joint swelling, joint pain Integumentary: Denies: rash, lesions, pruritus Neurological: Denies: headache, weakness, numbness, memory loss Endocrine: Denies: fatigue, heat or cold intolerance Hematologic/Lymphatic: Denies: easy bruising, lymphadenopathy Allergic/Immunologic: Denies: urticaria, itchy eyes Psychiatry Exam - Constitutional Vitals: Temp Pulse Resp BP Pulse Ox 98.7 F 86 16 102/69 96 05/31/18 02:42 05/31/18 02:42 05/31/18 02:42 05/31/18 02:42 05/31/18 02:42 General appearance: obese - Musculoskeletal Gait: normal Station: relaxed Strength & Tone: normal for patient - Psychiatric Patient Orientation: Yes Person, Yes Time, Yes Place Level of alertness: Alert Behavior: calm, cooperative Psychomotor activity: Normal Eye Contact: Maintains Eye Contact Mood Description: Depressed Affect description: flat Speech Volume: Normal Speech pattern: normal rate, normal rhythm, normal tone, fluent, spontaneous Language & Vocabulary: consistent with education Thought Process: Linear Thought Content: Yes Suicidal ideation, No Homicidal ideation, No Overt delusions Perceptual Disturbances: No Auditory hallucinations, No Visual hallucinations Attention Span Ability: Capable of Focused Attention Memory Description: Grossly Intact Patient Reliability: Reliable Historian Fund of knowledge: Yes abstraction ability, Yes aware of current events Intelligence Estimate: Average Judgment: Poor Insight: Minimal Results - Drug Levels and Toxicology Drug Levels and Toxicology: Drug Levels and Toxicity 05/30/18 05/30/18 12:17 13:11 Urine Opiates Screen Negative Acetaminophen < 10 L Ur Barbiturates Screen Negative Ur Phencyclidine Scrn Negative Ur Amphetamines Screen Negative U Benzodiazepines Scrn Negative Urine Cocaine Screen Negative U Marijuana (THC) Screen Negative Ethyl Alcohol < 10 - Labs Labs: Laboratory Last Values WBC 8.1 K/mcL (4.3-11.1) 05/30/18 12:17 RBC 4.81 M/mcL (3.82-4.97) 05/30/18 12:17 Hgb 14.2 g/dL (11.5-15.4) 05/30/18 12:17 Hct 43.5 % (35.3-44.9) 05/30/18 12:17 MCV 90.4 fL (83.0-100.0) 05/30/18 12:17 MCH 29.5 pg (28.0-33.3) 05/30/18 12:17 MCHC 32.6 g/dL (31.6-35.5) 05/30/18 12:17 RDW 13.2 % (11.5-14.5) 05/30/18 12:17 Plt Count 308 K/mcL (140-400) 05/30/18 12:17 MPV 10.4 fL (9.4-12.4) 05/30/18 12:17 Immature Gran % 0.2 % (0-4) 05/30/18 12:17 Seg Neutrophils % 44.8 % 05/30/18 12:17 Lymphocytes % 45.3 % 05/30/18 12:17 Monocytes % 6.1 % 05/30/18 12:17 Eosinophils % 3.0 % 05/30/18 12:17 Basophils % 0.6 % 05/30/18 12:17 Neutrophils # 3.6 K/mcL (1.6-8.9) 05/30/18 12:17 Lymphocytes # 3.7 K/mcL (0.6-4.6) 05/30/18 12:17 Monocytes # 0.5 K/mcL (0.0-1.3) 05/30/18 12:17 Eosinophils # 0.2 K/mcL (0.0-0.6) 05/30/18 12:17 Basophils # 0.1 K/mcL (0.0-0.2) 05/30/18 12:17 Sodium 140 mEq/L (136-145) 05/31/18 04:38 Potassium 3.8 mEq/L (3.5-5.1) 05/31/18 04:38 Chloride 109 mEq/L (98-107) H 05/31/18 04:38 Carbon Dioxide 23 mEq/L (23-29) 05/31/18 04:38 BUN 10 mg/dL (6-20) 05/31/18 04:38 Creatinine 0.75 mg/dL (0.60-1.20) 05/31/18 04:38 Est GFR ( Amer) > 60 (> 60) 05/31/18 04:38 Est GFR (Non-Af Amer) > 60 (> 60) 05/31/18 04:38 BUN/Creatinine Ratio 13 (6-26) 05/31/18 04:38 Glucose 116 mg/dL (70-105) H 05/31/18 04:38 Est Mean Plasma Glucose 126 mg/dl 05/31/18 04:38 Hemoglobin A1c 6.0 % (-5.6) H 05/31/18 04:38 Calculated Osmolality 290 (280-300) 05/31/18 04:38 Calcium 9.5 mg/dL (8.6-10.3) 05/31/18 04:38 Total Bilirubin 0.4 mg/dL (0.3-1.0) 05/31/18 04:38 AST 24 Units/L (13-39) 05/31/18 04:38 ALT 43 Units/L (7-52) 05/31/18 04:38 Alkaline Phosphatase 37 Units/L (34-104) 05/31/18 04:38 Serum Total Protein 6.7 g/dL (6.4-8.9) 05/31/18 04:38 Albumin 3.9 g/dL (3.5-5.7) 05/31/18 04:38 Globulin 2.8 g/dL (2.4-3.5) 05/31/18 04:38 Albumin/Globulin Ratio 1.4 (1.1-2.2) 05/31/18 04:38 Urine Color Yellow (Yellow) 05/30/18 13:11 Urine Clarity Cloudy (Clear) A 05/30/18 13:11 Urine pH 6.5 pH Units (5.0-8.0) 05/30/18 13:11 Ur Specific Mcbee 1.022 (1.010-1.025) 05/30/18 13:11 Urine Protein Negative mg/dL (Neg-Trace) 05/30/18 13:11 Urine Glucose (UA) Normal mg/dL (Normal) 05/30/18 13:11 Urine Ketones Negative mg/dL (Negative) 05/30/18 13:11 Urine Blood Negative (Negative) 05/30/18 13:11 Urine Nitrite Negative (Negative) 05/30/18 13:11 Urine Bilirubin Negative (Negative) 05/30/18 13:11 Urine Urobilinogen Normal mg/dL (Normal) 05/30/18 13:11 Ur Leukocyte Esterase Small (Negative) H 05/30/18 13:11 Urine Microscopic RBC 0-3 per hpf (0-3) 05/30/18 13:11 Urine Microscopic WBC 3-5 per hpf (0-3) H 05/30/18 13:11 Ur Squamous Epith Cells Many per lpf (None-Few) H 05/30/18 13:11 Urine Bacteria Moderate per hpf (None-Few) H 05/30/18 13:11 Hyaline Casts None Seen per lpf (None-Few) 05/30/18 13:11 Urine Test Negative (Negative) 05/30/18 13:11 Salicylates < 2.5 mg/dL (15.0-30.0) L 05/30/18 12:17 Urine Opiates Screen Negative ng/mL (Fiysgn=499) 05/30/18 13:11 Acetaminophen < 10 mcg/mL (10-20) L 05/30/18 12:17 Ur Barbiturates Screen Negative ng/mL (Irkmzj=536) 05/30/18 13:11 Ur Phencyclidine Scrn Negative ng/mL (Cutoff=25) 05/30/18 13:11 Ur Amphetamines Screen Negative ng/mL (Sohffo=0288) 05/30/18 13:11 U Benzodiazepines Scrn Negative ng/mL (Bczpwc=327) 05/30/18 13:11 Urine Cocaine Screen Negative ng/mL (Cutoff= 300) 05/30/18 13:11 U Marijuana (THC) Screen Negative ng/mL (Cutoff = 50) 05/30/18 13:11 Ur Drug Screen Interp See Below 05/30/18 13:11 Ethyl Alcohol < 10 mg/dL (Less than 10) 05/30/18 12:17 Consult Discharge Plan - Plan Referrals: NONE,PCP [Primary Care Provider] -
[2018-05-31 12:12] VITALS: BP 92/58
--- NOTE | 2018-05-31 14:59 | Discharge Summary ---
Date of Encounter: 05/31/18 Time of Encounter: 14:57 - Discharge Diagnosis (1) Intentional drug overdose Priority: Primary Status: Acute Qualifiers: Encounter type: initial encounter Qualified Code(s): T50.902A - Poisoning by unspecified drugs, medicaments and biological substances, intentional self- harm, initial encounter (2) Depressive disorder Priority: Primary Status: Chronic (3) Suicidal ideation Priority: Primary Status: Acute (4) Borderline diabetes mellitus Priority: Secondary Status: Chronic (5) Morbid obesity with BMI of 40.0-44.9, adult Priority: Secondary Status: Chronic Hospital course: HOSPITAL COURSE: This patient is a 33-year-old woman with severe depressive disorder. We admitted her after intentional overdose with venlafaxine and buspirone. She confessed it to her stepmother shortly after ingestion of pills. Her urine drug screen at admission was negative. We did not find any particular abnormalities in biochemistry panel. We presented her to psychiatry. They decided to offer her treatment in inpatient psychiatric [place]. CONDITION AT DISCHARGE: He has good. Other than feeling depressed she is not voicing any other problems. Skin: Free of rash and discoloration. Respiratory: Normal breath sounds with no crackles and wheezes bilaterally. CV: Heart is regular with no gallop or murmur. GI: Abdomen is flat and soft with no palpable mass or visceromegaly. Neuro exam: There is no focal deficits. Normal speech, swallowing and gait. SEE DISCHARGE ORDERS/MEDICATIONS Discharge discussed with: patient, case management - Time Spent with Patient Total time spent providing and/or coordinating discharge services: Greater than 30 minutes (35 minutes...) - Discharge Medications Home Medications: Buspirone HCl [Buspar] 15 mg PO BID 02/14/18 [History] ARIPiprazole [Abilify] 5 mg PO DAILY 05/30/18 [History] Venlafaxine HCl [Venlafaxine HCl ER] 150 mg PO DAILY 05/30/18 [History] Allergies/Adverse Reactions: Allergy/AdvReac Type Severity Reaction Status Date / Time No Known Allergies Allergy Verified 02/14/18 22:00 Date of admission: 05/30/18 13:26 Primary care physician: PCP NONE Consults: 05/30/18 18:50 Consult to Psychiatry [CONS] Routine Consulting Provider: [facility] [place] Reason consult: Sitter/1:1 Other reason and/or additional details: si/od Discharging clinician: Chidi Valencia Anticipated date of discharge: 05/31/18 - Constitutional Vitals: Temp Pulse Resp BP Pulse Ox 98.3 F 84 16 92/58 96 05/31/18 12:11 05/31/18 12:11 05/31/18 12:11 05/31/18 12:11 05/31/18 12:11 General appearance: Present: A&O X 3, no acute distress, answers questions appropriately Exam: xx - Patient Status Disposition: Transfer Other Condition: Fair Functional capacity at discharge: independent ambulation Overall status at discharge: patient is progressing back to baseline - Discharge Instructions Instructions: Suicide Prevention for Adults (DC) Follow Up With: NONE,PCP [Primary Care Provider] - - Diet and Activity Activity: resume usual activities as tolerated Diet: low fat, low cholesterol - VTE Reasons for not Prescribing Prophylaxis: Treatment not Indicated - Low risk for VTE Deep Vein Thrombosis/Pulmonary Embolism Present on Admission: No
--- NOTE | 2018-06-01 17:06 | Electrocardiograph Report ---
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
== END 2018-05-31 16:45 | disposition other institution (70) ==
LOC: EMEROOARM 12:01 → 3BNU 12:01 → SUATTDRO 13:26 → 3BNU 13:48
PROVIDERS: ADMIT Internal Medicine; ATTEND Internal Medicine

== ENCOUNTER 2018-05-31 16:46 | Inpatient (IN) ==
[2018-05-31] MEDS ORDERED: *HR* LORazepam 1 MG TABLET PO PRN (18:49)
[2018-05-31] MEDS ORDERED: Mag Hydrox/Al Hydrox/Simeth 30 ML UDC PO PRN (18:49)
[2018-05-31] MEDS ORDERED: Haloperidol Lactate 5 MG/ML VIAL IM PRN (18:49)
[2018-05-31] MEDS ORDERED: hydrOXYzine pamoate 25 MG CAPSULE PO PRN (18:49)
[2018-05-31] MEDS ORDERED: Acetaminophen 325 MG TABLET PO PRN (18:49)
[2018-05-31] MEDS ORDERED: MOM Conc 10 ML UD.LIQ PO PRN (18:49)
[2018-05-31] MEDS ORDERED: *HR* LORazepam 2 MG/ML VIAL IM PRN (18:49)
[2018-05-31] MEDS: traZODone 50 MG TABLET PO PRN (20:33)
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
--- NOTE | 2018-06-02 11:01 | Psychiatry Progress Note ---
Date of Encounter: 06/02/18 Time of Encounter: 10:59 Subjective Interval history: Client reports she is feeling a little better. Continues to have a depressed mood but SI has lessened. Still looks depressed. Flat affect. Isolating in room. Offered groups yesterday but did not attend them. Discussed spending more time out of room today. Also encouraged attendance and participation in groups to learn new coping skills. Will increase Zoloft for tomorrow morning. Client denies side effects and would like to try a higher dose. Review of Systems Constitutional: Denies: fever, chills, weakness, weight change Eyes: Denies: eye pain, vision change Ears, Nose, Throat: Denies: ear pain, throat pain, dental pain, hearing loss, congestion Cardiovascular: Denies: chest pain, palpitations, dyspnea on exertion Respiratory: Denies: cough, dyspnea, wheezes Gastrointestinal: Denies: abdominal pain, nausea, vomiting, diarrhea, constipation Musculoskeletal: Denies: joint swelling, joint pain Neurological: Denies: headache, weakness, numbness, memory loss Results - Vital Signs Vital Signs: Temp Pulse Resp BP Pulse Ox 98 F 86 16 127/77 97 06/02/18 09:00 06/02/18 09:00 06/02/18 09:00 06/02/18 09:00 06/02/18 09:00 Assessment and Plan (1) Recurrent major depression-severe Current visit: No Status: Acute Plan: Continue hospitalization, Close observation, Suicide Precautions per unit protocol, Encourage participation in unit milieu, Group Therapy, Monitor sleep, Monitor appetite Risks, benefits, side effects, alternatives discussed w/pt: Yes Patient agreeable to treatment: Yes Qualifiers: Psychotic features: without psychotic features Qualified Code(s): F33.2 - Major depressive disorder, recurrent severe without psychotic features Consult Discharge Plan - Plan Referrals: NONE,PCP [Primary Care Provider] - Psychiatry Exam - Constitutional Vitals: Temp Pulse Resp BP Pulse Ox 98 F 86 16 127/77 97 06/02/18 09:00 06/02/18 09:00 06/02/18 09:00 06/02/18 09:00 06/02/18 09:00 General appearance: obese - Musculoskeletal Gait: normal Station: relaxed Strength & Tone: normal for patient - Psychiatric Patient Orientation: Yes Person, Yes Time, Yes Place Level of alertness: Alert Behavior: calm, cooperative Psychomotor activity: Normal Eye Contact: Maintains Eye Contact Mood Description: Depressed Affect description: flat Speech Volume: Normal Speech pattern: normal rate, normal rhythm, normal tone, fluent, spontaneous Language & Vocabulary: consistent with education Thought Process: Linear Thought Content: Yes Suicidal ideation, No Homicidal ideation, No Overt delusions Perceptual Disturbances: No Auditory hallucinations, No Visual hallucinations Attention Span Ability: Capable of Focused Attention Memory Description: Grossly Intact Patient Reliability: Reliable Historian Fund of knowledge: Yes abstraction ability, Yes aware of current events Intelligence Estimate: Below Average Judgment: Limited Insight: Partial
[2018-06-02] MEDS: traZODone 50 MG TABLET PO PRN (21:38)
[2018-06-03 09:21] VITALS: BP 122/85
--- NOTE | 2018-06-03 09:39 | Discharge Summary ---
Date of Encounter: 06/03/18 Time of Encounter: 09:13 Diagnosis - Discharge Diagnosis (1) Recurrent major depression-severe Status: Acute Qualifiers: Psychotic features: without psychotic features Qualified Code(s): F33.2 - Major depressive disorder, recurrent severe without psychotic features Medications - Discharge Medications Prescriptions: Buspirone HCl [Buspar] 15 mg PO BID #28 tablet Sertraline [Zoloft] 100 mg PO DAILY #14 tablet traZODone [TraZODone] 50 mg PO HS PRN #14 tablet PRN Reason: Insomnia Levonorgestrel-Ethin Estradiol [Larissia-28 Tablet] 1 tab PO AD 06/01/18 [History] Metformin HCl 500 mg PO DAILY 06/01/18 [History] Buspirone HCl [Buspar] 15 mg PO BID #28 tablet 06/03/18 [Rx] Sertraline [Zoloft] 100 mg PO DAILY #14 tablet 06/03/18 [Rx] traZODone [TraZODone] 50 mg PO HS PRN #14 tablet 06/03/18 [Rx] Allergy/AdvReac Type Severity Reaction Status Date / Time No Known Allergies Allergy Verified 02/14/18 22:00 Provider Date of admission: 05/31/18 16:46 Primary care physician: PCP NONE Discharging clinician: Keshia Lieberman Psychiatry Exam - Constitutional Vitals: Temp Pulse Resp BP Pulse Ox 97.6 F 95 18 128/82 98 06/02/18 21:00 06/02/18 21:00 06/02/18 21:00 06/02/18 21:00 06/02/18 21:00 General appearance: obese - Musculoskeletal Gait: normal Station: relaxed Strength & Tone: normal for patient - Psychiatric Patient Orientation: Yes Person, Yes Time, Yes Place Level of alertness: Alert Behavior: calm, cooperative Psychomotor activity: Normal Eye Contact: Maintains Eye Contact Mood Description: Euthymic/stable Affect description: congruent with mood Speech Volume: Normal Speech pattern: normal rate, normal rhythm, normal tone, fluent, spontaneous Language & Vocabulary: consistent with education Thought Process: Linear, Goal Oriented Thought Content: No Suicidal ideation, No Homicidal ideation, No Overt delusions Perceptual Disturbances: No Auditory hallucinations, No Visual hallucinations Attention Span Ability: Capable of Focused Attention Memory Description: Grossly Intact Patient Reliability: Reliable Historian Fund of knowledge: Yes abstraction ability, Yes aware of current events Intelligence Estimate: Below Average Judgment: Fair Insight: Partial Hospital Course Hospital course: Ms. Gutierrez is a 33 year old female who was admitted following a medication overdose. She was admitted medically for observation and then transferred to . She was started on Zoloft, Buspar, and Trazodone with good clinical effect. Although she was initially withdrawn and isolating on the unit, she eventually improved to the point that she started interacting with her peers and going to groups. According to staff client was out of her room much more yesterday and attended all of the groups offered. Today client is much brighter. She has far more affect and she is far more conversant. Initially she would only give one or two word responses but today her speech is spontaneous. Although the plan was to send her to [facility], client reached out to a friend on her own. Her friend offered to allow her to stay with him. According to client her friend is also a mental health patient who is currently stable but understands everything she has been going through and is supportive. Client is already linked with services and plans to discuss [facility] with her therapist as a possible housing option down the road. Client reports having a positive relationship with all of her providers and feels comfortable discussing everything about this hospitalization with them. Client denies having any further SI. Client denies SI, intent, or plan. Client states if SI returns she will seek help and return to the ER if she has to. Client feels safe with discharge plan. - Time Spent with Patient Total time spent providing and/or coordinating discharge services: Assessment and Plan - Patient/Caregiver Discharge Instructions Activity: resume usual activities as tolerated Diet: regular diet - Follow up Plan Follow up with: NONE,PCP [Primary Care Provider] - Functional capacity at discharge: independent ambulation Overall status at discharge: Stable Disposition: Home, Self-Care Quality - Multiple Antipsychotics Patient discharged on 2 or more antipsychotic medications: No Procedures - Procedures Procedures: Medication Management, Crisis Stabilization, Supportive Therapy, Group Therapy
== END 2018-06-03 13:15 | disposition home or self-care (01) | DRG 751 ==
LOC: 1ANU 16:46
PROVIDERS: ADMIT Psychiatry & Neurology Psychiatry; ATTEND Psychiatry & Neurology Psychiatry

== ENCOUNTER 2020-08-03 22:00 | Observation (INO) ==
[2020-08-03 23:19] LABS: Basophils % 0.5 %; Eosinophils # 0.1 K/mcL (0.0-0.6); Eosinophils % 1.1 %; Hematocrit 44.9 % (35.3-44.9); Hemoglobin 14.5 g/dL (11.5-15.4); Immature Granulocytes % 0.3 % (0-4); Mean Corpuscular HGB Conc 32.3 g/dL (31.6-35.5); Mean Corpuscular Hemoglobin 30.3 pg (28.0-33.3); Mean Corpuscular Volume 93.7 fL (83.0-100.0); Mean Platelet Volume 10.6 fL (9.4-12.4); Monocytes # 0.6 K/mcL (0.0-1.3); Monocytes % 7.9 %; Neutrophils # 2.8 K/mcL (1.6-8.9); Platelet Count 262 K/mcL (140-400); Red Blood Count 4.79 M/mcL (3.82-4.97); Red Cell Distribution Width 13.2 % (11.5-14.5); Segmented Neutrophils % 38.2 %; White Blood Count 7.4 K/mcL (4.3-11.1)
[2020-08-03 23:22] LABS: Lymphocytes # 3.9 K/mcL (0.6-4.6)
[2020-08-03 23:40] LABS: BUN/Creatinine Ratio 16 (6-26); Blood Urea Nitrogen 11 mg/dL (6-20); Carbon Dioxide 19 mEq/L (23-29); Chloride 111 mEq/L (98-107); Glucose 145 mg/dL (70-105); Osmolality,Calculated 296 (280-300); Sodium 142 mEq/L (136-145); eGFR For African Americans > 60 (> 60); eGFR For Non-African Americans > 60 (> 60)
[2020-08-04 00:12] LABS: Platelet Estimate Normal (Normal); Reactive Lymphocytes Present (Not Present)
[2020-08-04 01:07] LABS: Troponin I < 0.03 ng/mL (< 0.04)
[2020-08-04] MEDS ORDERED: Isovue-370 500 ML BOTTLE IVP ONE (01:14)
[2020-08-04] MEDS ORDERED: Dexamethasone 4 MG/ML VIAL IVP ONE (02:39)
[2020-08-04] MEDS ORDERED: Acetaminophen 325 MG TABLET PO PRN (03:15)
[2020-08-04] MEDS ORDERED: Melatonin 3 MG TABLET PO PRN (03:15)
[2020-08-04] MEDS ORDERED: Naloxone 0.4 MG/ML INJ IVP PRN (03:15)
[2020-08-04] MEDS ORDERED: Ondansetron 4 MG/2 ML VIAL IVP PRN (03:15)
[2020-08-04] MEDS ORDERED: *HR* Dextrose 50 % in Water (Vial) 50 ML VIAL IVP PRN (04:07)
[2020-08-04] MEDS ORDERED: D5% in Water 1,000 ML IVC PRN (04:07)
[2020-08-04] MEDS ORDERED: Dextrose Gel 15 GM/37.5 ML TUBE PO PRN ×2 (04:07)
[2020-08-04 05:39] LABS: Hematocrit 42.3 % (35.3-44.9); Hemoglobin 13.6 g/dL (11.5-15.4); Mean Corpuscular HGB Conc 32.2 g/dL (31.6-35.5); Mean Corpuscular Volume 93.4 fL (83.0-100.0); Mean Platelet Volume 10.6 fL (9.4-12.4); Platelet Count 258 K/mcL (140-400); Red Blood Count 4.53 M/mcL (3.82-4.97); Red Cell Distribution Width 13.2 % (11.5-14.5); White Blood Count 5.5 K/mcL (4.3-11.1)
[2020-08-04 05:47] LABS: INR 1.2; Prothrombin Time 13.4 Seconds (9.4-12.1)
[2020-08-04] MEDS ORDERED: *HR* Enoxaparin 40 MG/0.4 ML SYRINGE SQ SCH (06:00)
[2020-08-04 06:19] LABS: BUN/Creatinine Ratio 18 (6-26); Blood Urea Nitrogen 11 mg/dL (6-20); Calcium 9.1 mg/dL (8.6-10.3); Carbon Dioxide 19 mEq/L (23-29); Chloride 109 mEq/L (98-107); Ferritin 891 ng/mL (10-120); Glucose 165 mg/dL (70-105); Lactate Dehydrogenase 340 Units/L (140-271); Osmolality,Calculated 291 (280-300); Potassium 3.9 mEq/L (3.5-5.1); Sodium 139 mEq/L (136-145); eGFR For African Americans > 60 (> 60); eGFR For Non-African Americans > 60 (> 60)
[2020-08-04] MEDS ORDERED: Insulin LISPRO 300 UNITS/3 ML VIAL SUBQ SCH ×2 (07:30→21:00)
[2020-08-04 09:08] LABS: C-Reactive Protein 26 mg/L (Less than 10)
[2020-08-04 09:58] VITALS: BP 126/77
[2020-08-05] MEDS ORDERED: Dexamethasone Sodium Phos/PF 10 MG/ML VIAL IVP SCH (09:00)
== END 2020-08-04 10:32 | disposition home or self-care (01) ==
LOC: EMEROOARM 22:00 → 2NENU 22:00 → SUATTDRO 08-04 03:03 → 2NENU 08-04 03:40
PROVIDERS: ADMIT Internal Medicine; ATTEND Internal Medicine

== ENCOUNTER 2021-05-31 15:18 | Inpatient (IN) ==
[2021-05-31 16:33] LABS: Basophils # 0.1 K/mcL (0.0-0.2); Basophils % 0.6 %; Eosinophils # 0.4 K/mcL (0.0-0.6); Hematocrit 40.1 % (35.3-44.9); Immature Granulocytes % 0.1 % (0-4); Lymphocytes # 3.4 K/mcL (0.6-4.6); Lymphocytes % 39.2 %; Mean Corpuscular HGB Conc 32.4 g/dL (31.6-35.5); Mean Corpuscular Volume 92.6 fL (83.0-100.0); Mean Platelet Volume 10.6 fL (9.4-12.4); Monocytes # 0.6 K/mcL (0.0-1.3); Monocytes % 6.5 %; Neutrophils # 4.3 K/mcL (1.6-8.9); Platelet Count 339 K/mcL (140-400); Red Blood Count 4.33 M/mcL (3.82-4.97); Red Cell Distribution Width 12.6 % (11.5-14.5); Segmented Neutrophils % 49.6 %; White Blood Count 8.7 K/mcL (4.3-11.1)
[2021-05-31 16:43] LABS: Bilirubin,Urine Negative (Negative); Blood,Urine Large (Negative); Calcium Oxalate Crystals,Urine Present per hpf; Clarity,Urine Turbid (Clear); Color,Urine Yellow (Yellow); Glucose,Urine (UA) Normal (Normal); Ketones,Urine Negative (Negative); Leukocyte Esterase,Urine Large (Negative); Mucus,Urine Many per lpf (None-Few); Nitrite,Urine Negative (Negative); Protein,Urine 50 mg/dL (Neg-Trace); RBC,Urine TNTC per hpf (0-3); Renal Epithelial Cells,Urine Few per hpf (None-Few); Specific Gravity,Urine 1.028 (1.010-1.025); Squamous Epithelial Cell,Urine Many per hpf (None-Few); Transitional Epi Cells,Urine Few per hpf (None-Few); Urobilinogen,Urine Normal (Normal); WBC,Urine 50-100 per hpf (0-3)
[2021-05-31 16:47] LABS: Amphetamine Screen,Urine Positive ng/mL (Cutoff=1000); Barbiturate Screen,Urine Negative ng/mL (Cutoff=200); Benzodiazepines Screen,Urine Negative ng/mL (Cutoff=200); Cannabinoid Screen,Urine Negative ng/mL (Cutoff = 50); Cocaine Screen,Urine Negative ng/mL (Cutoff= 300); Opiate Screen,Urine Negative ng/mL (Cutoff=300); Phencyclidine Screen,Urine Negative ng/mL (Cutoff=25)
[2021-05-31 17:03] LABS: Acetaminophen < 10 mcg/mL (10-20); Alanine Aminotransferase 74 Units/L (7-52); Albumin 4.1 g/dL (3.5-5.7); Albumin/Globulin Ratio 1.2 (1.1-2.2); Alkaline Phosphatase 41 Units/L (34-104); Aspartate Amino Transferase 66 Units/L (13-39); BUN/Creatinine Ratio 16 (6-26); Bilirubin,Indirect 0.3 mg/dL (0.0-1.0); Bilirubin,Total 0.3 mg/dL (0.3-1.0); Blood Urea Nitrogen 14 mg/dL (6-20); Calcium 9.5 mg/dL (8.6-10.3); Carbon Dioxide 23 mEq/L (23-29); Chloride 112 mEq/L (98-107); Chol/HDL Ratio 2.9 (0-4.9); Cholesterol 114 mg/dL (< 200); Ethanol < 10 mg/dL (Less than 10); Globulin 3.4 g/dL (2.4-3.5); Glucose 170 mg/dL (70-105); HDL Cholesterol 40 mg/dL (40-59); LDL Cholesterol,Calculated 52 mg/dL (< 100); Osmolality,Calculated 306 (280-300); Potassium 4.1 mEq/L (3.5-5.1); Salicylate < 2.5 mg/dL (15.0-30.0); Sodium 146 mEq/L (136-145); Total Protein 7.5 g/dL (6.4-8.9); Triglycerides 110 mg/dL (< 150); eGFR For African Americans > 60 (> 60); eGFR For Non-African Americans > 60 (> 60)
[2021-05-31 17:07] LABS: Thyroid Stimulating Hormone 0.682 mcIU/mL (0.340-5.600)
[2021-05-31 19:29] LABS: Estimated Average Glucose 128 mg/dl; Hemoglobin A1C 6.1 %
[2021-05-31 19:51] LABS: Influenza A PCR Negative (Negative); Influenza B PCR Negative (Negative); Resp. Syncytial Virus PCR Negative (Negative)
[2021-05-31 19:52] LABS: SARS-CoV-2 by PCR (In House) Negative (Negative)
[2021-05-31] MEDS ORDERED: *HR* LORazepam 1 MG TABLET PO PRN (20:05)
[2021-05-31] MEDS ORDERED: *HR* LORazepam 2 MG/ML VIAL IM PRN (20:05)
[2021-05-31] MEDS ORDERED: haloperidoL 5 MG TABLET PO PRN (20:05)
[2021-05-31] MEDS ORDERED: Haloperidol Lactate 5 MG/ML VIAL IM PRN (20:05)
[2021-05-31] MEDS ORDERED: Ibuprofen 400 MG TABLET PO PRN (20:05)
[2021-05-31] MEDS ORDERED: hydrOXYzine pamoate 25 MG CAPSULE PO PRN (20:05)
[2021-05-31] MEDS: traZODone 50 MG TABLET PO PRN (23:13)
[2021-06-01] MEDS ORDERED: MOM Conc 10 ML UD.LIQ PO PRN (10:49)
[2021-06-01] MEDS ORDERED: Mag Hydrox/Al Hydrox/Simeth 30 ML UDC PO PRN (10:49)
[2021-06-01] MEDS: OXcarbazepine 150 MG TABLET PO SCH ×2 (12:35→23:01)
[2021-06-01] MEDS: Ibuprofen 600 MG TABLET PO PRN ×2 (12:35→23:01)
[2021-06-01] MEDS: ARIPiprazole 5 MG TABLET PO SCH (12:35)
[2021-06-01] MEDS: *HR* Metformin 500 MG TABLET PO SCH (16:37)
[2021-06-01] MEDS: Acetaminophen 325 MG TABLET PO PRN (16:40)
[2021-06-02] MEDS: OXcarbazepine 150 MG TABLET PO SCH ×2 (09:58→21:03)
[2021-06-02] MEDS: *HR* Metformin 500 MG TABLET PO SCH ×2 (09:58→17:33)
[2021-06-02] MEDS: ARIPiprazole 5 MG TABLET PO SCH (09:58)
[2021-06-02] MEDS: Ibuprofen 600 MG TABLET PO PRN (19:49)
[2021-06-02] MEDS: traZODone 50 MG TABLET PO PRN (21:03)
[2021-06-03] MEDS: ARIPiprazole 5 MG TABLET PO SCH (09:03)
[2021-06-03] MEDS: *HR* Metformin 500 MG TABLET PO SCH ×2 (09:03→17:03)
[2021-06-03] MEDS: OXcarbazepine 150 MG TABLET PO SCH ×2 (09:03→20:59)
[2021-06-03] MEDS: ETHINYL ESTRADIOL PO SCH (15:53)
[2021-06-03] MEDS: DROSPIRENONE PO SCH (15:53)
[2021-06-03] MEDS: traZODone 50 MG TABLET PO PRN (21:01)
[2021-06-04] MEDS: ARIPiprazole 5 MG TABLET PO SCH (09:06)
[2021-06-04] MEDS: DROSPIRENONE PO SCH (09:06)
[2021-06-04] MEDS: ETHINYL ESTRADIOL PO SCH (09:06)
[2021-06-04] MEDS: OXcarbazepine 150 MG TABLET PO SCH ×2 (09:06→21:34)
[2021-06-04] MEDS: *HR* Metformin 500 MG TABLET PO SCH ×2 (09:06→16:42)
[2021-06-04] MEDS: Acetaminophen 325 MG TABLET PO PRN (10:20)
[2021-06-04] MEDS: traZODone 50 MG TABLET PO PRN (21:34)
[2021-06-05] MEDS: OXcarbazepine 150 MG TABLET PO SCH (08:31)
[2021-06-05] MEDS: ARIPiprazole 5 MG TABLET PO SCH (08:31)
[2021-06-05] MEDS: *HR* Metformin 500 MG TABLET PO SCH (08:32)
[2021-06-05] MEDS: ETHINYL ESTRADIOL PO SCH (08:32)
[2021-06-05] MEDS: DROSPIRENONE PO SCH (08:32)
[2021-06-05 09:14] VITALS: BP 100/68; PULSE 74; TEMP 98; O2SAT 98
[2021-06-05] MEDS ORDERED: FLU Vac QV 21-22 (6Month+)/PF 0.5 ML SYRINGE IM ONE (09:57)
== END 2021-06-05 11:10 | disposition home or self-care (01) | DRG 751 ==
LOC: EMEROOARM 15:18 → 1ANU 20:25
PROVIDERS: ADMIT Psychiatry & Neurology Psychiatry; ATTEND Psychiatry & Neurology Psychiatry